=== PATIENT | female | born 1980 | race Caucasian/White ===

== ENCOUNTER 2023-02-03 02:41 | Outpatient (CLI) | payer OTHER, SELFPAY | END 2023-02-03 02:42 | disposition home or self-care (01) | LOC: AMB 02-06 05:41 | PROVIDERS: Visit Provider Family Medicine | DX: F29 Unspecified psychosis not due to a substance or known physiological condition (principal) | CPT/HCPCS: A0425; A0433 ==

== ENCOUNTER 2023-02-03 03:30 | Emergency (ER) | payer OTHER, SELFPAY ==
[2023-02-03] VITALS (44 sets, daily range): BP systolic 79–132; BP diastolic 35–101; PULSE 53–89; RESP 15–24; TEMP 36.2–36.3; O2SAT 97–100
--- NOTE | 2023-02-03 03:38 | ED_ITS ---
HPI - General Adult General Chief complaint: Nausea/Vomiting Stated complaint: panic attack Time Seen by Provider: 02/03/23 03:33 History of Present Illness HPI narrative: 42-year-old woman brought by EMS to the emergency department with concern of initially panic attack then noting low blood pressures. Information is obtained from EMS and arriving on little bit later. Had been evidently in the bathroom with a few of hours vomiting and having diarrhea. Vomiting is not atypical when she is really anxious. Has not had a fever. He had been attending to her and she said that she thought she was going to need some help now. EMS arrived to find her in a panic state. Given Ativan 2mg. Continued to demonstrate contractures of muscles. To calm further I believe was given 2.5 mg of droperidol. It also sounds as though has not been eating over the last 3 days or so. Talking further with , underlying depression is exacerbated over the last 6 months...probably much longer. Some of this coincided with prolonged hospitalization of a daughter who became toxic on lithium as described to me. Ms. Hi has been seeing a counselor. Medications have been adjusted. Reviewing medications, looks as though has been receiving some alprazolam. He says that she takes care to take medications as prescribed. She is also receiving guanfacine and I believe fluoxetine. As things have worsened with daily panic attacks and she is now on the wait list for a program at [facility]; I discussed later that this is focused on trauma. Related Data Home Medications Medication Instructions Recorded Confirmed alprazolam 0.25 mg tablet 0.25 mg PO PRN anxiety 02/03/23 alprazolam 1 mg tablet 1 mg PO DAILY PRN panic attack 02/03/23 02/03/23 fluvoxamine 100 mg tablet 150 mg PO BID 02/03/23 02/03/23 fluvoxamine 50 mg tablet mg PO 02/03/23 guanfacine 1 mg tablet,extended 1 mg PO DAILY 02/03/23 02/03/23 release 24 hr Previous Rx's Medication Instructions Recorded hydroxyzine HCl 25 mg tablet 25 - 50 mg (1 - 2 x 25 mg) PO QID 02/03/23 PRN anxiety #30 tabs ondansetron 4 mg disintegrating 4 mg PO Q4-6H PRN nausea/vomiting 02/03/23 tablet #15 tabs Allergies Allergy/AdvReac Type Severity Reaction Status Date / Time No Known Drug Allergies Allergy Verified 02/03/23 04:15 Review of Systems Status of ROS: Reports: unobtainable due to medical condition [facility] Medical History (Updated 02/03/23 @ 09:16 by Cornelio Pabon MD) Anxiety ?F41.9 - Anxiety disorder, unspecified (ICD-10) Depression ?F32.A - Depression, unspecified (ICD-10) Exam Narrative: Exam Narrative: Thin. Small stature. Curled up. At 1 point does say she is cold. Eyes are closed. Generally sedated not inconsistent with medications given. Symmetrical gaps in upper dentition coinciding I think with eyeteeth. Oropharynx is dry. Eyes are 2 mm and briskly reactive. She is breathing spontaneously not really responding to other interactions. Lungs appear to be clear. Heart is in a regular rhythm and rate. Abdomen is soft and apears to be nontender. Extre mities are without edema. Feet are cool. Do not see evidence of trauma to her head or person otherwise. There is some blood at the right forearm though due attempted IV start. Subtle smell of ketones I think. Const: Vital Signs, click to edit/add: Vital Signs - 24 hr 02/03/23 03:34 02/03/23 03:36 02/03/23 03:48 Temperature 97.1 F L 97.1 F L Pulse Rate Pulse Rate [Left P ulse Oximeter] 77 75 Respiratory Rate 18 18 Blood Pressure Blood Pressure [Ri ght Upper Arm] 132/101 H 82/35 L Pulse Oximetry 100 100 [facility] 02/03/23 03:49 02/03/23 03:50 02/03/23 03:52 Temperature Pulse Rate 79 75 74 Pulse Rate [Left P ulse Oximeter] Respiratory Rate 24 23 22 Blood Pressure 81/38 L 79/37 L Blood Pressure [Ri ght Upper Arm] Pulse Oximetry 100 100 100 [facility] 02/03/23 04:00 02/03/23 04:07 02/03/23 04:10 Temperature Pulse Rate Pulse Rate [Left P ulse Oximeter] Respiratory Rate 22 21 19 Blood Pressure 88/39 L Blood Pressure [Ri ght Upper Arm] Pulse Oximetry [facility] 02/03/23 04:12 02/03/23 04:22 02/03/23 04:42 Temperature Pulse Rate 89 85 Pulse Rate [Left P ulse Oximeter] Respiratory Rate 21 20 19 Blood Pressure 82/38 L 81/42 L 83/44 L Blood Pressure [Ri ght Upper Arm] Pulse Oximetry 100 99 [facility] 02/03/23 04:52 02/03/23 05:01 02/03/23 05:07 Temperature Pulse Rate 76 70 Pulse Rate [Left P ulse Oximeter] 64 Respiratory Rate 20 19 16 Blood Pressure 83/49 L 91/45 L Blood Pressure [Ri ght Upper Arm] 91/45 L Pulse Oximetry 98 99 98 Oxygen Delivery [facility] Room Air 02/03/23 05:11 02/03/23 05:22 02/03/23 05:33 Temperature Pulse Rate 68 67 64 Pulse Rate [Left P ulse Oximeter] Respiratory Rate 18 15 Blood Pressure 87/49 L 92/51 L 90/43 L Blood Pressure [Ri ght Upper Arm] Pulse Oximetry 99 99 100 Oxygen Delivery [facility] 02/03/23 05:47 02/03/23 06:02 02/03/23 06:10 Temperature Pulse Rate 56 L 58 L 59 L Pulse Rate [Left P ulse Oximeter] Respiratory Rate Blood Pressure 88/54 L 93/63 Blood Pressure [Ri ght Upper Arm] Pulse Oximetry 98 98 99 [facility] 02/03/23 06:17 02/03/23 06:20 02/03/23 06:30 Temperature Pulse Rate 53 L 53 L 56 L Pulse Rate [Left P ulse Oximeter] Respiratory Rate Blood Pressure 90/56 L Blood Pressure [Ri ght Upper Arm] Pulse Oximetry 98 98 98 Oxygen Delivery [facility] 02/03/23 06:32 02/03/23 06:40 02/03/23 06:45 Temperature Pulse Rate 60 61 55 L Pulse Rate [Left P ulse Oximeter] Respiratory Rate 16 Blood Pressure 92/53 L Blood Pressure [Ri ght Upper Arm] Pulse Oximetry 97 98 97 [facility] 02/03/23 06:50 02/03/23 07:00 02/03/23 07:05 Temperature Pulse Rate 54 L 61 57 L Pulse Rate [Left P ulse Oximeter] Respiratory Rate Blood Pressure Blood Pressure [Ri ght Upper Arm] Pulse Oximetry 98 97 99 Oxygen Delivery [facility] 02/03/23 07:10 02/03/23 07:20 02/03/23 07:25 Temperature Pulse Rate 59 L 63 61 Pulse Rate [Left P ulse Oximeter] Respiratory Rate Blood Pressure Blood Pressure [Ri ght Upper Arm] Pulse Oximetry 98 98 98 Oxygen Delivery [facility] 02/03/23 07:30 02/03/23 07:31 02/03/23 07:40 Temperature Pulse Rate 68 69 77 Pulse Rate [Left P ulse Oximeter] Respiratory Rate 16 Blood Pressure 88/47 L Blood Pressure [Ri ght Upper Arm] Pulse Oximetry 99 98 99 Oxygen Delivery [facility] 02/03/23 07:42 02/03/23 07:43 02/03/23 07:50 Temperature Pulse Rate 69 72 88 Pulse Rate [Left P ulse Oximeter] Respiratory Rate Blood Pressure 81/53 L Blood Pressure [Ri ght Upper Arm] Pulse Oximetry 98 98 99 Oxygen Delivery [facility] 02/03/23 08:00 02/03/23 08:01 02/03/23 08:10 Temperature 97.3 F L Pulse Rate 78 85 86 Pulse Rate [Left P ulse Oximeter] Respiratory Rate 16 Blood Pressure 84/47 L Blood Pressure [Ri ght Upper Arm] Pulse Oximetry 99 98 99 Oxygen Delivery [facility] 02/03/23 08:20 02/03/23 08:22 Temperature Pulse Rate 76 65 Pulse Rate [Left P ulse Oximeter] Respiratory Rate Blood Pressure 86/52 L Blood Pressure [Ri ght Upper Arm] Pulse Oximetry 100 99 Oxygen Delivery [facility] Documenting provider has reviewed patient's vital signs: yes Course Vital Signs Vital signs: Initial Vital Signs Temperature 97.1 F L 02/03/23 03:34 Temperature Source Temporal Artery Scan 02/03/23 03:34 Pulse Rate 77 02/03/23 03:34 Respiratory Rate 18 02/03/23 03:34 Blood Pressure 132/101 H 02/03/23 03:34 Blood Pressure Mean 111 H 02/03/23 03:34 Blood Pressure Position Supine 02/03/23 03:34 Pulse Oximetry 100 02/03/23 03:34 Oxygen Delivery Method Room Air 02/03/23 03:34 Vital Signs Temperature 97.1 F L 02/03/23 03:34 Pulse Rate 77 02/03/23 03:34 Respiratory Rate 18 02/03/23 03:34 Blood Pressure 132/101 H 02/03/23 03:34 Pulse Oximetry 100 02/03/23 03:34 Oxygen Delivery Method Room Air 02/03/23 03:34 Temperature 97.3 F L 02/03/23 08:01 Pulse Rate 65 02/03/23 08:22 Respiratory Rate 16 02/03/23 08:01 Blood Pressure 86/52 L 02/03/23 08:22 Pulse Oximetry 99 02/03/23 08:22 Oxygen Delivery Method Room Air 02/03/23 05:07 Medical Decision Making MDM Narrative Medical decision making narrative: Initial blood pressure is improved 132/101 though I believe she is lying on the cuff at this time. Recheck 82/35. She is receiving normal saline bolus. Certainly could be sepsis. Sedative medications could also be contributing to this lower blood pressure. Surely is malnourished. Collecting labs including blood cultures. Will be consulting for potential psychiatric placement as well. Over time increasingly responsive and cooperating with requests. 0447 -- White count returns as normal. Chemistries actually look remarkably good. Sustained renal function. Blood pressure still low but stable. Pulse remains at a normal rate. I think sepsis is less likely and blood pressure related to factors as above. Has been anticipating longer-term psychiatric placement. I am anticipating temporary admission to this facility for ?medical? reasons. However certainly possible that will show marked improvement. I would suspect given stature and apparent level of nourishment has generally low blood pressure. Furthermore then if not suicidal still potentially outpatient management appropriate for psychiatric concerns. I am concerned though that is rapidly decompensating. 8:15 a.m. I managed to speak with Ms. Hi and her family; mother also came to accompany. Due to daughter, family is very familiar with various residential facilities including those focusing on psychiatric and those also related to eating disorders. [facility] been determined [facility] most appropriate; at least the trauma program. Ms. Hi now more awake is able to discuss this more at length. She demonstrates significant insight into her declining health. Is looking for help. In further conversation appears that will have a couple days of eating better and then a few days of not. Persistent sense of nausea. Is also status post bariatric surgery. I am quite concerned about generally declining nutritional status. I wonder if perhaps would be a candidate for eating disorder program as often have concurrent focus of trauma and related anxiety/depression. To further conversation appears is quite committed to program with [facility] which is to be a day program. I wonder also due to what I am hearing today, if inpatient might be more appropriate/success and less ?triggering?. Did call to [facility] program and spoke to Nati to discuss my concerns. They are very understanding and I am anticipating follow-up by them with Ms. Abdalla with regard to the urgency of her situation. It is my understanding is she is that the top of their wait list with anticipated discharge is in a couple of weeks. Perhaps would be able to consult with manager talent or dietitian during that time and/or be admitted into an eating disorder program where there is current availability and transition over to the trauma program if necessary. Will temporize with Zofran for nausea and hydroxyzine for exacerbation of anxiety and nausea. She does have an appointment with her psychiatrist in a couple of hours and can further discuss these matters. I feel Ms. Abdalla is safe in the short term to discharge home. Further did not express any suicidal ideation See patient discharge plan. Lab Data Lab results reviewed: Yes I reviewed the patient's lab results Labs: Lab Results 02/03/23 02/03/23 02/03/23 Range/Units 03:41 05:20 06:37 WBC 10.52 (4.50-11.00) K/uL RBC 3.86 L (4.00-5.20) m/uL Hgb 12.3 (12.0-16.0) gm/dL Hct 36.8 (33.0-51.0) % MCV 95 (80-100) fL MCH 32 (26-34) pg MCHC 33 (32-36) gm/dL RDW Coeff of Cheryl 11.8 (11.5-15.5) % Plt Count 138 L (140-440) K/uL Neut % (Auto) 90.2 H (42.0-72.0) % Lymph % (Auto) 4.5 L (20-44) % [place] % (Auto) 4.6 (0.0-11.0) % Eos % (Auto) 0.1 (0.0-7.0) % Baso % (Auto) 0.2 (0.0-3.0) % Neut # (Auto) 9.50 H (1.7-7.0) K/uL Lymph # (Auto) 0.50 L (0.90-2.90) K/uL [place] # (Auto) 0.50 (0.00-0.90) K/UL Eos # (Auto) 0.01 (0.00-0.50) K/uL Baso # (Auto) 0.02 (0.00-0.30) K/uL Abs Immat Gran (auto) 0.04 (0.00-0.30) K/uL Imm/Tot Granulo (auto) 0.4 % VBG pH 7.185 L* (7.32-7.43) VBG pCO2 43 (40-50) mmHG VBG pO2 34.8 (25-47) mmHG VBG HCO3 16 L (21-28) mmol/L Sodium 139 (135-149) mmol/L Potassium 3.5 L (3.6-5.1) mmol/L Chloride 105 (96-114) mmol/L Carbon Dioxide 13 L (20-32) mmol/L BUN 10 (5-24) mg/dL Creatinine 0.7 (0.5-1.5) mg/dL Estimated GFR 111 ml/min Glucose 157 H (60-115) mg/dL Lactate 7.5 H* 0.8 (0.5-1.9) mmol/L Calcium 8.7 (8.4-10.6) mg/dL Phosphorus 2.5 (2.5-4.5) mg/dL Magnesium 1.6 (1.5-2.6) mg/dL Total Bilirubin 1.1 (0.1-1.5) mg/dL Direct Bilirubin 0.4 (0.0-0.5) mg/dL AST 95 H (12-35) U/L ALT 62 H (4-35) U/L Alkaline Phosphatase 75 (40-150) U/L Total Creatine Kinase 53 (41-117) U/L C-Reactive Protein < 0.5 L (0.5-1.0) mg/dL NT-Pro-B Natriuret Pep 164 pg/mL Total Protein 7.1 (6.0-8.3) g/dL Albumin 4.5 (3.3-5.0) g/dL TSH 2.970 (0.270-4.20) uIU/mL Urine Color Yellow (Yellow) Urine Appearance Clear (Clear) Urine pH 5.5 (5.0-8.5) Ur Specific [place] >= 1.030 (1.000-1.030) Urine Protein Trace A (Negative) Urine Glucose (UA) Negative (Negative) Urine Ketones 4+ A (Negative) Urine Blood Trace-intact A (Negative) Urine Nitrite Negative (Negative) Urine Bilirubin Negative (Negative) Urine Urobilinogen 0.2 (0.2-1.0) Ur Leukocyte Esterase Negative (Negative) Urine RBC 2-5 A (0-2) Urine WBC 0-2 (0-5) Ur Squamous Epith Cells Few (None-Few) Urine Bacteria None (None) Hyaline Casts Moderate A (None-Few) Urine Mucus Few A (None) Salicylates < 1.0 L (1.0-10) mg/dL Acetaminophen < 10.0 L (10.0-30.0) ug/mL Ethyl Alcohol < 0.01 L (0.01-0.03) % ECG Data Attestation: I personally reviewed and interpreted this ECG as follows: (Normal sinus rhythm. Prominent P-wave. Baseline irritability consistent with muscle tension/contraction. Rate of 77) Critical Care Time Critical Care Time Critical Care Time: Yes Attestation: The patient required my highest level preparedness to intervene emergently and I personally spent this critical care time directly and personally managing the patient. This critical care time included: Obtaining a history; Examining the patient; Pulse oximetry; Ordering and reviewing of studies; Arranging urgent treatment with development of a management plan; Evaluation of patients response to treatment; Frequent reassessment discussions with other providers. This critical care time was performed to assess and manage the high probability of imminent life-threatening deterioration that could result in multiorgan failure. It was exclusive of separate billable procedures and treating other patients and teaching time. Total Critical Care Time in Minutes: 50 Discharge Plan Discharge Clinical Impression: Chronic post-traumatic stress disorder, Dehydration, Anxiety, Malnutrition Patient Disposition: Home w/ Parent or Adult Condition: Improved Additional Instructions: As you know today I spoke with Nati at [facility]. Anticipate a phone call from them later today. I would encourage you to really consider a variety of options that might be available, if even temporary. I understand you will be discussing this with your psychiatrist yet this morning. I'm sorry you're going through all this. I hope this can soon calm for you. Take these copies of your labs today. Prescriptions: New hydroxyzine HCl 25 mg tablet 25 - 50 mg PO QID PRN (Reason: anxiety) Qty: 30 0RF ondansetron 4 mg tablet,disintegrating 4 mg PO Q4-6H PRN (Reason: nausea/vomiting) Qty: 15 1RF No Action alprazolam 1 mg tablet 1 mg PO DAILY PRN (Reason: panic attack) alprazolam 0.25 mg tablet 0.25 mg PO PRN (Reason: anxiety) fluvoxamine 100 mg tablet 150 mg PO BID fluvoxamine 50 mg tablet PO guanfacine 1 mg tablet extended release 24 hr 1 mg PO DAILY Follow Up/Referrals: Provider,Not a Local [Primary Care Provider] - Stand Alone Forms: [facility] Info Instructions
[2023-02-03 03:48] LABS: HCO3 VBG 16 mmol/L (21-28); PCO2 VBG 43 mmHG (40-50); PO2 VBG 34.8 mmHG (25-47)
--- NOTE | 2023-02-03 03:49 | ED.NURSE ---
warm blankets provided.
[2023-02-03 03:52] LABS: Lactate* 7.5 mmol/L (0.5-1.9); pH VBG 7.185 (7.32-7.43)
[2023-02-03 04:18] LABS: Basophils Absolute Auto 0.02 K/uL (0.00-0.30); Basophils Percent Auto 0.2 % (0.0-3.0); Eosinophils Absolute Auto 0.01 K/uL (0.00-0.50); Eosinophils Percent Auto 0.1 % (0.0-7.0); Hematocrit 36.8 % (33.0-51.0); Hemoglobin* 12.3 gm/dL (12.0-16.0); Immature Granulocytes Abs Auto 0.04 K/uL (0.00-0.30); Immature Granulocytes Pct Auto 0.4 %; Lymphocytes Percent Auto 4.5 % (20-44); Mean Corpuscular HGB Conc 33 gm/dL (32-36); Mean Corpuscular Hemoglobin 32 pg (26-34); Mean Corpuscular Volume 95 fL (80-100); Monocytes Percent Auto 4.6 % (0.0-11.0); Neutrophils Percent Auto 90.2 % (42.0-72.0); Platelet Count* 138 K/uL (140-440); RDW Coefficient of Variation % 11.8 % (11.5-15.5); Red Blood Count 3.86 m/uL (4.00-5.20); White Blood Count* 10.52 K/uL (4.50-11.00)
[2023-02-03 04:21] LABS: Slide Review Reflex No
--- NOTE | 2023-02-03 04:21 | PC.NURSE ---
Pt arrived about 50 min ago with low b/Ps. Noted to have 18G left ac with 500NS from EMS almost complete. This completed and another 1L NS up. Multiple attempts to place second IV/failed. Lab able to get rest of labs with a couple attemts. B/Ps remain marginal. Sats greater than 95% on room air. Pt somulant but arrouse to requests. SO at BS and supportive.
[2023-02-03 04:24] LABS: Chloride* 105 mmol/L (96-114); Sodium* 139 mmol/L (135-149)
[2023-02-03 04:25] LABS: Potassium* 3.5 mmol/L (3.6-5.1)
[2023-02-03 04:26] LABS: Albumin* 4.5 g/dL (3.3-5.0)
[2023-02-03 04:27] LABS: Carbon Dioxide* 13 mmol/L (20-32); Creatinine* 0.7 mg/dL (0.5-1.5); Estimated Glomerular Filt Rate 111 ml/min
[2023-02-03 04:28] LABS: Blood Urea Nitrogen* 10 mg/dL (5-24); Calcium* 8.7 mg/dL (8.4-10.6); Glucose* 157 mg/dL (60-115)
[2023-02-03 04:29] LABS: Alkaline Phosphatase* 75 U/L (40-150); Aspartate Amino Transferase* 95 U/L (12-35); Bilirubin Direct* 0.4 mg/dL (0.0-0.5); Bilirubin Total* 1.1 mg/dL (0.1-1.5); Creatine Kinase* 53 U/L (41-117); Magnesium* 1.6 mg/dL (1.5-2.6); Phosphorus* 2.5 mg/dL (2.5-4.5); Total Protein* 7.1 g/dL (6.0-8.3)
[2023-02-03 04:30] LABS: Acetaminophen* < 10.0 ug/mL (10.0-30.0); Ethanol* < 0.01 % (0.01-0.03)
[2023-02-03 04:31] LABS: Salicylate* < 1.0 mg/dL (1.0-10)
[2023-02-03 04:32] LABS: C Reactive Protein* < 0.5 mg/dL (0.5-1.0)
[2023-02-03] MEDS: 0.9 % SODIUM CHLORIDE 1000 ml 1,000 ML 6000 ML IV (04:34)
[2023-02-03 04:37] LABS: NT Pro B Type NatriureticPept* 164 pg/mL
[2023-02-03 04:42] LABS: Alanine Aminotransferase* 62 U/L (4-35)
[2023-02-03] MEDS: 0.9 % SODIUM CHLORIDE 1000 ml 1,000 ML IV ×2 (04:53→05:00)
--- NOTE | 2023-02-03 05:32 | PC.NURSE ---
Pt up to BR with 1 assist. Gait slow and steady. Urine sect as ordered. /43. Family at BS and supportive. IVF infusing slowly.
[2023-02-03 05:34] LABS: Appearance Urine Clear (Clear); Bilirubin Urine Negative (Negative); Blood Urine Trace-intact (Negative); Color Urine Yellow (Yellow); Glucose Urine Negative (Negative); Ketones Urine 4+ (Negative); Leukocyte Esterase Urine Negative (Negative); Nitrite Urine Negative (Negative); Protein Urine Trace (Negative); Specific Gravity Urine >= 1.030 (1.000-1.030); Urobilinogen Urine 0.2 (0.2-1.0); pH Urine 5.5 (5.0-8.5)
[2023-02-03 05:48] LABS: Mucus Urine Few; Squamous Epithelial Cell Urine Few (None-Few); WBC Urine 0-2 (0-5)
[2023-02-03 05:49] LABS: Hyaline Casts Urine Moderate (None-Few)
[2023-02-03 06:42] LABS: Lactate* 0.8 mmol/L (0.5-1.9)
--- NOTE | 2023-02-03 08:00 | ED.NURSE ---
Updated Dr. Pabon that patient has an appointment with her psychiatrist at 11am today with [facility] in [place]. Patient stated she has an outpatient day treatment planned in a couple weeks in [place], [place]. Patient stated she is feeling a lot better than when she first came in. Refused to eat food at this time but did agree to drinking some apple juice. This was provided to patient. BP remains low and MD aware and stated This is her baseline.
== END 2023-02-03 09:26 | disposition home or self-care (01) ==
PROVIDERS: Emergency Provider Family Medicine
DX: F43.12 Post-traumatic stress disorder, chronic (principal); E86.0 Dehydration; E46 Unspecified protein-calorie malnutrition; F41.9 Anxiety disorder, unspecified
CPT/HCPCS: 36415; 80048; 80076; 80143; 80179; 81001; 82077; 82550; 82803; 83605; 83735; 83880; 84100; 84443; 85025; 86140; 87040; 93005; 94761; 96360; 96361; 99284; 99291; J7030

== ENCOUNTER 2024-06-16 14:25 | Outpatient (CLI) | payer OTHER, SELFPAY ==
--- OUTSIDE RECORDS SUMMARY | 2024-06-17 03:58 | XMS_ITS | Clinical Summary ---
Author Organization [facility] Address [address] [place] [address] Care Team Providers Care Director [employer] Name Role Phone Morena Paredes MD Primary Care Provider [phone] Morena Paredes MD Unavailable [phone] Allergies No known active allergies Medications Cholecalciferol (VITAMIN D-3) 125 MCG (7360 UT) TABS Take 1 capsule by mouth [...] Administration Dates Next Due Flu, Unspecified 03/27/2015 [id number] Novel Flu 06/10/2009 Influenza (IIV3) PF 03/18/2016, [...] on file Legal Sex Female 3:31 PM [employer] Gender Identity Not on file Sexual Orientation Not on file Last Filed Vital Signs Vital Sign Reading Time Taken Comments Blood Pressure 90/60 08/02/2023 9:54 AM [employer] Pulse 88 08/02/2023 9:54 AM [employer] Temperature 36.6 C (97.9 F) 08/02/2023 9:54 AM [employer] Respiratory Rate 18 08/02/2023 9:54 AM [employer] Oxygen Saturation 99% 08/02/2023 9:54 AM M[employer]ED [employer] Inhaled Oxygen Concentration - - Weight 54.4 kg (119 lb 14.4 oz) 08/02/2023 9:54 AM M[employer] Height 156.8 cm (5' 1.75) 08/02/2023 9:54 AM CS T Body Mass Index 22.11 08/02/2023 9:54 AM M[employer]ED [employer] Plan of Treatment Health Maintenance Due Date [...] Routine 10/17/2020 8:44 AM CDT ABSTRACT HPV ([facility] EXTERNAL RESULT) Routine 12/13/2018 9:15 AM CDT from Last 3 Months or Most Recently Relevant to Health Maintenance Results * Lipid Panel (External Result) (10/17/2020 8:44 AM CDT) Cholesterol (External) 181 100 - 199 mg/dL [facility] Triglycerides (External) 58 <150 mg/dL [facility] HDL Cholesterol (External) 56 >40 mg/dL [facility] LDL Cholesterol Calculated (External) 113 <=130 mg/dL [facility] Non HDL Cholesterol (External) 125 <145 mg/dL [facility] Blood 10/17/2020 8:44 AM CDT Narrative [facility] - 10/17/2020 8:44 AM CDT See Care Everywhere-[facility] Affiliates us Provider Outside LAB - HIM [place] [address], [facility] [phone] * Abstract HPV ([facility] External Result) (12/13/2018 9:15 AM CDT) HPV Abstract See Scanned Document [facility] 12/13/2018 9:15 AM CDT Narrative [facility] - 12/13/2018 9:15 AM CDT See Care Everywhere-[employer] [facility] & [facility] Affiliates us Provider Outside LAB - HIM EXTERNAL RESULT Final Result [facility] [address] [place] [address], [facility] from Last 3 Months or Most Recently Relevant to Health Maintenance Insurance [employer] Care Teams Director [employer] Relationship Specialty Start Date End Date Morena Paredes MD [address] [place] [address] PCP - General Internal Medicine - Pediatrics 12/14/22 Morena Paredes MD [address] [place] [address] Assigned PCP 08/11/23
--- OUTSIDE RECORDS SUMMARY | 2024-06-17 03:58 | XMS_ITS | Referral Summary ---
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 Gender Identity Not on file Sexual Orientation Not on file Last Filed Vital Signs Vital Sign Reading Time Taken Comments Blood Pressure 90/60 08/02/2023 9:54 AM REFUSE COLLECTOR SUPERVISOR Pulse 88 08/02/2023 9:54 AM REFUSE COLLECTOR SUPERVISOR Temperature 36.6 C (97.9 F) 08/02/2023 9:54 AM REFUSE COLLECTOR SUPERVISOR Respiratory Rate 18 08/02/2023 9:54 AM REFUSE COLLECTOR SUPERVISOR Oxygen Saturation 99% 08/02/2023 9:54 AM REFUSE COLLECTOR SUPERVISOR Inhaled Oxygen Concentration - - Weight 54.4 kg (119 lb 14.4 oz) 08/02/2023 9:54 AM REFUSE COLLECTOR SUPERVISOR Height 156.8 cm (5' 1.75) 08/02/2023 9:54 AM CS T Body Mass Index 22.11 08/02/2023 9:54 AM REFUSE COLLECTOR SUPERVISOR Plan of Treatment Not on file Procedures Procedure Name Priority Date/Time Associated Diagnosis Comments LIPID PANEL (EXTERNAL RESULT) Routine 10/17/2020 8:44 AM CDT ABSTRACT HPV (HIM EXTERNAL RESULT) Routine 12/13/2018 9:15 AM CDT from Last 3 Months or Most Recently Relevant to Health Maintenance Results * Lipid Panel (External Result) (10/17/2020 8:44 AM CDT) Cholesterol (External) 181 100 - 199 mg/dL [facility] Triglycerides (External) 58 <150 mg/dL [facility] HDL Cholesterol (External) 56 >40 mg/dL [facility] LDL Cholesterol Calculated (External) 113 <=130 mg/dL [facility] Non HDL Cholesterol (External) 125 <145 mg/dL [facility] Blood 10/17/2020 8:44 AM CDT Narrative [facility] - 10/17/2020 8:44 AM CDT See Care Everywhere-[facility] [employer] [facility] us Provider Outside LAB - HIM EXTERNAL RESULT Final Result [facility] [address] [phone] * Abstract HPV (HIM External Result) (12/13/2018 9:15 AM CDT) HPV Abstract See Scanned Document [facility] 12/13/2018 9:15 AM CDT Narrative [facility] - 12/13/2018 9:15 AM CDT See Care Everywhere-[facility] Provider Outside LAB - HIM EXTERNAL RESULT Final Result [facility] [address] [place] [address], [facility] from Last 3 Months or Most Recently Relevant to Health Maintenance Insurance [employer] Care Teams Accountant Assistant Relationship Specialty Start Date End Date Morena Paredes MD [address] [place] [address] PCP - General Internal Medicine - Pediatrics 12/14/22 Morena Paredes MD [address] [place] [address] Assigned PCP 08/11/23
== END 2024-06-16 14:26 | disposition home or self-care (01) ==
LOC: AMB 06-17 03:56
PROVIDERS: Visit Provider Family Medicine
DX: R41.82 Altered mental status, unspecified (principal); F41.9 Anxiety disorder, unspecified
CPT/HCPCS: A0425; A0427

== ENCOUNTER 2024-06-16 15:02 | Inpatient (IN) | payer OTHER, SELFPAY ==
[2024-06-16] VITALS (31 sets, daily range): BP systolic 92–118; BP diastolic 52–98; PULSE 62–142; RESP 14–40; TEMP 36.5; O2SAT 91–100; BMI 17.5
[2024-06-16 15:30] LABS: HCO3 VBG 26 mmol/L (21-28); Lactate* 2.9 mmol/L (0.5-1.9); PCO2 VBG 49 mmHG (40-50); pH VBG 7.329 (7.32-7.43)
--- OUTSIDE RECORDS SUMMARY | 2024-06-16 15:30 | XMS_ITS | Referral Summary ---
Author Organization [facility] Address [address] [place] [address] Care Team Providers Care Freelance Interpreter/Translator Name Role Phone Morena Paredes MD Primary Care Provider [phone] Morena Paredes MD Unavailable [phone] Allergies No known active allergies Medications Cholecalciferol (VITAMIN D-3) 125 MCG (9935 UT) TABS Take 1 capsule by mouth daily 07/26/2023 Active ALPRAZolam (XANAX) 0.5 MG tablet Take 0.5 mg by mouth 2 times daily as needed for anxiety 07/26/2023 Active doxepin (SINEQUAN) 10 MG capsule Take 10 mg by mouth at bedtime 07/29/2023 Active FLUoxetine (PROZAC) 10 MG capsule Take 10 mg by mouth daily 07/12/2023 Active FLUoxetine (PROZAC) 20 MG capsule Take 20 mg by mouth daily 07/12/2023 Active fluvoxaMINE (LUVOX) 100 MG tablet Take 100 mg by mouth daily Total 150mg daily 02/10/2023 Active fluvoxaMINE (LUVOX) 50 MG tablet Take 50 mg by mouth daily Total 150mg daily 07/12/2023 Active guanFACINE (INTUNIV) 2 MG TB24 24 hr tablet Take 2 mg by mouth at bedtime 04/15/2023 Active omeprazole (PRILOSEC) [address] capsule Take 20 mg by mouth daily 07/07/2023 Active prazosin (MINIPRESS) 2 MG capsule Take 2 mg by mouth at bedtime Total 3mg 07/29/2023 Active prazosin (MINIPRESS) 1 MG capsule Take 1 mg by mouth at bedtime Total 3mg 07/12/2023 Active Active Problems Problem Noted Date Diagnosed Date PTSD (post-traumatic stress disorder) 08/02/2023 History of bariatric surgery 09/14/2012 Vitamin D deficiency 06/25/2010 Immunizations Name Administration Dates Next Due Flu, Unspecified 03/27/2015 [id number] Novel Flu 06/10/2009 Influenza (IIV3) PF 03/18/2016, 3,05/09/2012,2009,03/27/2009 Influenza Vaccine >6 months,quad, PF ,04/13/2019,04/21/2018,2016,03/24/2016,03/18/2015,06/04/2014 Influenza Vaccine, 6+MO IM (QUADRIVALENT W/PRESERVATIVES) 05/08/2021 TDAP (Adacel,Boostrix) 07/26/2018,12/29/2007 Social History Tobacco Use Types Packs/Day Years Used Date Smoking Tobacco: Never Smokeless Tobacco: Never Tobacco Cessation:Counseling Given: Not Answered PHQ-2 Answer Date Recorded PHQ-2 Score 3 08/02/2023 Adolescent Education Answer Date Record ed Getting School Help Needed Not on file 04/09 Food Insecurity Answer Date Recorded Within the past 12 months, d id you worry that your food would run out before you got money to buy more? No 08/02/2023 Within the past 12 months, d id the food you bought just not last and you didn t have money to get more? No 08/02/2023 Housing Stability Answer Date Recorded Do you have housing? (Housin g is defined as stable permanent housing and does not include staying ouside in a car, in a tent, in an abandoned building, in an overnight halfway, or couch-surfing.) Yes 08/02/2023 Are you worried about losing your housing? No 08/02/2023 Financial Resource Strain Answer Date R ecorded Within the past 12 months, h ave you or your family members you live with been unable to get utilities (heat, electricity) when it was really needed? No 08/02/2023 Transportation Needs Answer Date Record ed Within the past 12 months, h as lack of transportation kept you from medical appointments, getting your medicines, non-medical meetings or appointments, work, or from getting things that you need? No 08/02/2023 Interpersonal Safety Answer Date Record ed Do you feel physically and e motionally safe where you currently live? Yes 08/02/2023 Within the past 12 months, h ave you been hit, slapped, kicked or otherwise physically hurt by someone? No 08/02/2023 Within the past 12 months, h ave you been humiliated or emotionally abused in other ways by your partner or ex-partner? 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 Gender Identity Not on file Sexual Orientation Not on file Last Filed Vital Signs Vital Sign Reading Time Taken Comments Blood Pressure 90/60 08/02/2023 9:54 AM TELECASTING ENGINEER Pulse 88 08/02/2023 9:54 AM TELECASTING ENGINEER Temperature 36.6 C (97.9 F) 08/02/2023 9:54 AM TELECASTING ENGINEER Respiratory Rate 18 08/02/2023 9:54 AM TELECASTING ENGINEER Oxygen Saturation 99% 08/02/2023 9:54 AM TELECASTING ENGINEER Inhaled Oxygen Concentration - - Weight 54.4 kg (119 lb 14.4 oz) 08/02/2023 9:54 AM TELECASTING ENGINEER Height 156.8 cm (5' 1.75) 08/02/2023 9:54 AM CS T Body Mass Index 22.11 08/02/2023 9:54 AM TELECASTING ENGINEER Plan of Treatment Not on file Procedures Procedure Name Priority Date/Time Associated Diagnosis Comments LIPID PANEL (EXTERNAL RESULT) Routine 10/17/2020 8:44 AM CDT ABSTRACT HPV (HIM EXTERNAL RESULT) Routine 12/13/2018 9:15 AM CDT from Last 3 Months or Most Recently Relevant to Health Maintenance Results * Lipid Panel (External Result) (10/17/2020 8:44 AM CDT) Cholesterol (External) 181 100 - 199 mg/dL [facility] Triglycerides (External) 58 <150 mg/dL [facility] HDL Cholesterol (External) 56 >40 mg/dL [facility] LDL Cholesterol Calculated (External) 113 <=130 mg/dL [facility] Non HDL Cholesterol (External) 125 <145 mg/dL [facility] Blood 10/17/2020 8:44 AM CDT Narrative [facility] - 10/17/2020 8:44 AM CDT See Care Everywhere-[facility] us Provider Outside LAB - HIM EXTERNAL RESULT Final Result [facility] [address] [phone] * Abstract HPV (HIM External Result) (12/13/2018 9:15 AM CDT) HPV Abstract See Scanned Document [facility] 12/13/2018 9:15 AM CDT Narrative [facility] - 12/13/2018 9:15 AM CDT See Care Everywhere-[facility] [employer] [facility] Provider Outside LAB - HIM EXTERNAL RESULT Final Result [facility] [address] [place] [address], [facility] from Last 3 Months or Most Recently Relevant to Health Maintenance Insurance [employer] Care Teams Freelance Interpreter/Translator Relationship Specialty Start Date End Date Morena Paredes MD [address] [place] [address] PCP - General Internal Medicine - Pediatrics 12/14/22 Morena Paredes MD [address] [place] [address] Assigned PCP 08/11/23
--- OUTSIDE RECORDS SUMMARY | 2024-06-16 15:30 | XMS_ITS | Clinical Summary ---
Author Organization [facility] Address [address] [place] [address] Care Team Providers Care Business Consult Name Role Phone Morena Paredes MD Primary Care Provider [phone] Morena Paredes MD Unavailable [phone] Allergies No known active allergies Medications Cholecalciferol (VITAMIN D-3) 125 MCG (4730 UT) TABS Take 1 capsule by mouth [...] Administration Dates Next Due Flu, Unspecified 03/27/2015 [id number] Novel Flu 06/10/2009 Influenza (IIV3) PF 03/18/2016, [...] in an abandoned building, in an overnight longterm, or couch-surfing.) Yes 08/02/2023 Are you worried [...] on file Legal Sex Female 3:31 PM [employer] Gender Identity Not on file Sexual Orientation Not on file Last Filed Vital Signs Vital Sign Reading Time Taken Comments Blood Pressure 90/60 08/02/2023 9:54 AM UNDERGROUND FOREM[employer] Pulse 88 08/02/2023 9:54 AM UNDERGROUND FOREM[employer] Temperature 36.6 C (97.9 F) 08/02/2023 9:54 AM UNDERGROUND FOREM[employer] Respiratory Rate 18 08/02/2023 9:54 AM UNDERGROUND FOREMAN Oxygen Saturation 99% 08/02/2023 9:54 AM UNDERGROUND FOREMAN Inhaled Oxygen Concentration - - Weight 54.4 kg (119 lb 14.4 oz) 08/02/2023 9:54 AM UNDERGROUND FOREMAN Height 156.8 cm (5' 1.75) 08/02/2023 9:54 AM CS T Body Mass Index 22.11 08/02/2023 9:54 AM UNDERGROUND FOREMAN Plan of Treatment Health Maintenance Due Date Last Done Comments ADVANCE CARE PLANNING 1980 ANNUAL REVIEW OF HM ORDERS 1980 GLUCOSE 1980 MAMMO SCREENING 1980 YEARLY PREVENTIVE VISIT 1980 HPV TEST 12/14/2023 12/13/2018, 12/13/2018 PAP 12/14/2023 12/13/2018, 11/16, 12/13/2018 COVID-19 Vaccine ( season) 2024 05/08/2021, 08/19/2020, 07/29/2020 INFLUENZA VACCINE (#1) 2024 , 04/02/2020, 04/13/2019, Additional history exists LIPID 10/17/2025 10/17/2020 DTAP/TDAP/TD IMMUNIZATION (3 - Td or Tdap) 07/26/2028 07/26/2018, 12/29/2007 RSV VACCINE (1 - 1-dose 75+ series) 2055 PHQ-2 (once per calendar year) Completed 08/02/2023, 08/02/2023 HEPATITIS B IMMUNIZATION Discontinued HEPATITIS C SCREENING Discontinued HIV SCREENING Discontinued HPV IMMUNIZATION Aged Out No longer e ligible based on patient's age to complete this topic MENINGITIS IMMUNIZATION Aged Out No l onger eligible based on patient's age to complete this topic Pneumococcal Vaccine: Pediatrics (0 to 5 Years) and At-Risk Patients (6 to 64 Years) Aged Out No longer eligible based on patient's age to complete this topic RSV MONOCLONAL ANTIBODY Aged Out No l onger eligible based on patient's age to complete this topic Procedures Procedure Name Priority Date/Time Associated Diagnosis Comments LIPID PANEL (EXTERNAL RESULT) Routine 10/17/2020 8:44 AM CDT ABSTRACT HPV ([facility] EXTERNAL RESULT) Routine 12/13/2018 9:15 AM CDT from Last 3 Months or Most Recently Relevant to Health Maintenance Results * Lipid Panel (External Result) (10/17/2020 8:44 AM CDT) Cholesterol (External) 181 100 - 199 mg/dL [facility] Triglycerides (External) 58 <150 mg/dL [facility] HDL Cholesterol (External) 56 >40 mg/dL [facility] LDL Cholesterol Calculated (External) 113 <=130 mg/dL [facility] Non HDL Cholesterol (External) 125 <145 mg/dL [facility] Blood 10/17/2020 8:44 AM CDT Narrative [facility] - 10/17/2020 8:44 AM CDT See Care Everywhere-[facility] Affiliates us Provider Outside LAB - HIM [place] [address], [facility] [phone] * Abstract HPV ([facility] External Result) (12/13/2018 9:15 AM CDT) HPV Abstract See Scanned Document [email or web address] 12/13/2018 9:15 AM CDT Narrative [facility] - 12/13/2018 9:15 AM CDT See Care Everywhere-[facility] Affiliates us Provider Outside LAB - HIM EXTERNAL RESULT Final Result [email or web address] [address] [place] [address], [facility] from Last 3 Months or Most Recently Relevant to Health Maintenance Insurance [employer] Care Teams Business Consult Relationship Specialty Start Date End Date Morena Paredes MD [address] [place] [address] PCP - General Internal Medicine - Pediatrics 12/14/22 Morena Paredes MD [address] [place] [address] Assigned PCP 08/11/23
[2024-06-16 15:33] LABS: Basophils Absolute Auto 0.02 K/uL (0.00-0.30); Basophils Percent Auto 0.3 % (0.0-3.0); Eosinophils Absolute Auto 0.01 K/uL (0.00-0.50); Eosinophils Percent Auto 0.1 % (0.0-7.0); Hematocrit 41.4 % (33.0-51.0); Hemoglobin* 13.8 gm/dL (12.0-16.0); Immature Granulocytes Abs Auto 0.02 K/uL (0.00-0.30); Immature Granulocytes Pct Auto 0.3 %; Lymphocytes Percent Auto 12.7 % (20-44); Mean Corpuscular HGB Conc 33 gm/dL (32-36); Mean Corpuscular Hemoglobin 31 pg (26-34); Mean Corpuscular Volume 94 fL (80-100); Monocytes Percent Auto 6.1 % (0.0-11.0); Neutrophils Percent Auto 80.5 % (42.0-72.0); Platelet Count* 202 K/uL (140-440); RDW Coefficient of Variation % 11.9 % (11.5-15.5); Red Blood Count 4.41 m/uL (4.00-5.20); White Blood Count* 7.35 K/uL (4.50-11.00)
[2024-06-16 15:37] LABS: Anion Gap 15 mEq/L (7-15); Carbon Dioxide* 24 mmol/L (20-32); Chloride* 106 mmol/L (96-114); Glucose* 88 mg/dL (60-115); Potassium* 3.3 mmol/L (3.6-5.1); Sodium* 145 mmol/L (135-149)
[2024-06-16 15:38] LABS: Slide Review Reflex No
[2024-06-16] MEDS: 0.9 % SODIUM CHLORIDE 500 ML 500 ML 1000 ML IV ×2 (15:43→22:10)
--- NOTE | 2024-06-16 15:44 | ED.GENADULT ---
HPI - General Adult General Chief complaint: Altered Mental Status Stated complaint: ketamine overuse Time Seen by Provider: 06/16/24 15:10 History of Present Illness HPI narrative: History is provided by mother. She reports patient has long standing issue with severe depression and anxiety. She was last hospitalized last summer for several months . At that time she was undergoing ketamine infusions. Her insurance then reportedly changed, and she changed to ODT Ketamine for symptomatic anxiety and depression. Mom reports low mood, however, has been working and that has been going well. Mom does not believe this was suicide attempt but rather her just trying to feel better. 44-year-old woman brought in [facility] by EMS following apparent ingestion/overdose, suspected with ketamine. Does have history of anxiety depression. Increased stressors lately. Does have ODT ketamine to take at home. Was responding briefly to EMS upon arrival. Noted to have some powder under her tongue. Has become less responsive during transport. Pupils were not noted to be pinpoint and no Narcan was given. Discussion with family has not been thought to be suicidal just stressed. Shiela is not offering much in way of information at this point. In conversation with mother and , she has been more depressed over the last 2- 3 months. Has been taking ODT ketamine which was apparently prescribed from a provider online, weekly. Family is aware of her medications but do not actually hand them out. She also also been using weekly benzodiazepine, Xanax. Possibly more frequently. Was noted to be a little unsteady yesterday. I understand that she did have another tablet of ketamine in her hand while under the covers that was removed. Last year was hospitalized for couple of months for what sounds like marked depression and failure to thrive; significant weight loss. Stressors include autistic daughter. Shiela did regain weight during this hospitalization. Ketamine infusions at that time. With change of insurance then went online to find provider for oral ketamine. 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 Reportedly really enjoys her job. Mom notes how on evening she comes home and crawls into bed for 3 days. Related Data Home Medications ?Medication ?Instructions ?Recorded ?Confirmed alprazolam 0.25 mg tablet 0.25 mg PO PRN anxiety 02/03/23 alprazolam 1 mg tablet 1 mg PO DAILY PRN panic attack 02/03/23 02/03/23 fluvoxamine 100 mg tablet 150 mg PO BID 02/03/23 02/03/23 fluvoxamine 50 mg tablet mg PO 02/03/23 guanfacine 1 mg tablet,extended 1 mg PO DAILY 02/03/23 02/03/23 release 24 hr Previous Rx's ?Medication ?Instructions ?Recorded hydroxyzine HCl 25 mg tablet 25 - 50 mg (1 - 2 x 25 mg) PO QID 02/03/23 PRN anxiety #30 tabs ondansetron 4 mg disintegrating 4 mg PO Q4-6H PRN nausea/vomiting 02/03/23 tablet #15 tabs Allergies Allergy/AdvReac Type Severity Reaction Status Date / Time No Known Drug Allergies Allergy Verified 02/03/23 04:15 Review of Systems Status of ROS: Reports: 6 or more systems reviewed and unremarkable except as noted in History and below [facility] Medical History Anxiety ?F41.9 - Anxiety disorder, unspecified (ICD-10) Depression ?F32.A - Depression, unspecified (ICD-10) Social History Smoking Status: Unknown if ever smoked Non-prescribed substance use details: Ketamine Exam Narrative: Exam Narrative: Appears quite thin. Eyes are closed head is rotated to the right. Transfer to the cot is not really responding. Ago to examine further she does resist throws her left arm up and then rolled over to her left side. Pupils look to be 5 mm and equal. Appropriately reactive, accommodating. Extraocular movements look to be intact. Head is atraumatic. No indication of recent trauma on her person. No track morgan. Heart is in mildly elevated rate in a regular rhythm but rather distant. Abdomen is flat soft appears to be nontender. Oropharynx is disheveled. Possibly smell of ketones here. Const: Vital Signs, click to edit/add: Vital Signs - 24 hr 06/16/24 15:16 06/16/24 15:16 06/16/24 15:30 Temperature 97.7 F Pulse Rate 72 Pulse Rate [Pulse Oximeter] 92 Respiratory Rate 20 Blood Pressure 118/76 Blood Pressure [Le ft Upper Arm] 108/52 L Pulse Oximetry 100 94 94 Oxygen Delivery Me thod Room Air 06/16/24 15:32 06/16/24 15:47 06/16/24 16:02 Temperature Pulse Rate 71 75 82 Pulse Rate [Pulse Oximeter] Respiratory Rate 16 Blood Pressure 115/76 111/63 112/72 Blood Pressure [Le ft Upper Arm] Pulse Oximetry 94 96 100 Oxygen Delivery Me thod 06/16/24 16:15 06/16/24 16:20 06/16/24 16:20 Temperature Pulse Rate 142 H Pulse Rate [Pulse Oximeter] Respiratory Rate 36 H 28 H Blood Pressure Blood Pressure [Le ft Upper Arm] Pulse Oximetry 100 100 Oxygen Delivery Me thod 06/16/24 16:25 06/16/24 16:27 06/16/24 16:30 Temperature Pulse Rate 125 H 136 H Pulse Rate [Pulse Oximeter] 114 H Respiratory Rate 28 H 20 40 H Blood Pressure 106/54 L Blood Pressure [Le ft Upper Arm] 106/54 L Pulse Oximetry 100 100 100 Oxygen Delivery Me thod Room Air 06/16/24 16:38 06/16/24 16:39 06/16/24 16:45 Temperature Pulse Rate 105 H 95 111 H Pulse Rate [Pulse Oximeter] Respiratory Rate 38 H 18 18 Blood Pressure 115/98 H Blood Pressure [Le ft Upper Arm] Pulse Oximetry 100 100 96 Oxygen Delivery Me thod 06/16/24 16:52 06/16/24 16:57 06/16/24 17:00 Temperature Pulse Rate 117 H 117 H 111 H Pulse Rate [Pulse Oximeter] Respiratory Rate 16 15 14 Blood Pressure 100/52 L 98/60 Blood Pressure [Le ft Upper Arm] Pulse Oximetry 96 96 95 Oxygen Delivery Me thod 06/16/24 17:09 06/16/24 17:18 06/16/24 17:20 Temperature Pulse Rate 112 H 104 H Pulse Rate [Pulse Oximeter] Respiratory Rate 17 20 22 Blood Pressure 94/55 L 96/53 L Blood Pressure [Le ft Upper Arm] Pulse Oximetry 96 92 Oxygen Delivery Me thod 06/16/24 17:21 06/16/24 17:30 06/16/24 18:06 Temperature Pulse Rate 100 94 78 Pulse Rate [Pulse Oximeter] Respiratory Rate 19 22 22 Blood Pressure 92/60 115/74 Blood Pressure [Le ft Upper Arm] Pulse Oximetry 91 91 94 Oxygen Delivery Me thod 06/16/24 18:52 06/16/24 19:02 06/16/24 19:30 Temperature Pulse Rate 69 71 68 Pulse Rate [Pulse Oximeter] Respiratory Rate Blood Pressure 111/70 111/75 Blood Pressure [Le ft Upper Arm] Pulse Oximetry 94 94 94 Oxygen Delivery Me thod 06/16/24 19:32 Temperature Pulse Rate 70 Pulse Rate [Pulse Oximeter] Respiratory Rate 16 Blood Pressure 113/70 Blood Pressure [Le ft Upper Arm] Pulse Oximetry 95 Oxygen Delivery Me thod Documenting provider has reviewed patient's vital signs: yes Course Vital Signs Vital signs: Initial Vital Signs Temperature 97.7 F 06/16/24 15:16 Temperature Source Temporal Artery Scan 06/16/24 15:16 Pulse Rate 92 06/16/24 15:16 Respiratory Rate 20 06/16/24 15:16 Blood Pressure 108/52 L 06/16/24 15:16 Blood Pressure Mean 70 06/16/24 15:16 Pulse Oximetry 100 06/16/24 15:16 Oxygen Delivery Method Room Air 06/16/24 15:16 Vital Signs Temperature 97.7 F 06/16/24 15:16 Pulse Rate 92 06/16/24 15:16 Respiratory Rate 20 06/16/24 15:16 Blood Pressure 108/52 L 06/16/24 15:16 Pulse Oximetry 100 06/16/24 15:16 Oxygen Delivery Method Room Air 06/16/24 15:16 Temperature 97.7 F 06/16/24 15:16 Pulse Rate 70 06/16/24 19:32 Respiratory Rate 16 06/16/24 19:32 Blood Pressure 113/70 06/16/24 19:32 Pulse Oximetry 95 06/16/24 19:32 Oxygen Delivery Method Room Air 06/16/24 16:25 Medications Administered Medications: Generic Name Dose Route Start Last Admin Trade Name Freq PRN Reason Stop Dose Admin Folic Acid 1 mg/ Multivitamins 1,011.2 mls @ 100 mls/hr 06/16/24 22:34 06/16/24 22:47 10 ml/ Thiamine HCl 100 mg/ IV 06/17/24 08:40 100 mls/hr Sodium Chloride .Q10H7M PACO Administration Discontinued Medications Generic Name Dose Route Start Last Admin Trade Name Freq PRN Reason Stop Dose Admin Sodium Chloride 500 mls @ 1,000 mls/hr 06/16/24 15:10 06/16/24 16:10 0.9 % Sodium Chloride 500 Ml IV 06/16/24 15:39 0 mls/hr .Q30M ONE Infusion Sodium Chloride 500 mls @ 1,000 mls/hr 06/16/24 16:47 06/16/24 17:58 0.9 % Sodium Chloride 500 Ml IV 06/16/24 17:16 Not Given .Q30M ONE Folic Acid 1 mg/ Multivitamins 1,004.2 mls @ 100 mls/hr 06/16/24 22:20 06/16/24 22:48 2 ml/ Thiamine HCl 200 mg/ IV 06/17/24 08:22 Not Given Sodium Chloride .Q10H3M PACO Sodium Chloride 500 mls @ 1,000 mls/hr 06/16/24 22:21 06/16/24 22:47 0.9 % Sodium Chloride 500 Ml IV 06/16/24 22:50 Infused .Q30M ONE Infusion Lorazepam 1 mg 06/16/24 16:31 06/16/24 16:20 Lorazepam 2 Mg/Ml Inj IM 06/16/24 16:32 1 mg ONCE ONE Administration Naloxone HCl 0.4 mg 06/16/24 15:15 06/16/24 15:12 Naloxone 0.4 Mg/Ml Inj IVP 06/16/24 15:16 0.4 mg ONCE ONE Administration Olanzapine 10 mg 06/16/24 16:33 06/16/24 16:35 Olanzapine 5 Mg/Ml Inj IM 06/16/24 16:34 10 mg ONCE ONE Administration Oral Electrolytes 1,014 ml 06/16/24 17:44 06/16/24 17:56 Electrolytes/Dextrose Oral Kristi 1,000 Ml PO 06/16/24 17:45 1,014 ml ONCE ONE Administration Medical Decision Making MDM Narrative Medical decision making narrative: I think less likely this is an opiate ingestion but was given a dose of Narcan shortly after arrival. This did not seem to have any effect. She did flex questions about whether not there may have been some other ingestion although had initially denied ketamine. It is unclear to me whether not there was attempt at an overdose. Clearly has been suffering from depression and has been losing weight and appears to be exhibiting failure to thrive. Once a little more alert did discuss with Shiela that needed urine. She was resistant to this conversation. I was also asking whether not she may have taken anything else. She actually denied taking ketamine but would not tell me what else she had taken and then became more agitated when I asked if it may have been intentional. We had also been discussing placing a catheter if she could not provide us with urine. Initially she quickly pulled out left arm IV and was threatening other lines. Requiring firm physical restraint by myself I called for help to assist with restraint. Ultimately was placed in soft limb restraints and given a mg of Ativan IM as other IV access was inadequate. Still quite upset and trembling and straining at restraints given 10 mg IM Zyprexa. During this escalation I was in intermittent conversation with mom and . Has been more relaxed and were able to discontinue limb restraints. Have gone to talk with her again and has been sleeping. She is willing to accept IV after initially attempting to take Pedialyte for quite some time. She has managed very little oral intake. Will be restarting IV and given normal saline. Will also be giving a banana bag. She is still too sleepy or resistant to discuss the events of today let alone have a more formal psychiatric interview. We are still awaiting urine for drug screen. Pending improved alertness, I would consider Shiela medically cleared at this point for psychiatric interview and admission. Pending further information I would also consider her holdable. I have discussed this with her mother who is staying with her yet tonight. Anticipating hand off at change of shift. Medical Records Medical records reviewed: Yes I reviewed the patient's medical records Lab Data Lab results reviewed: Yes I reviewed the patient's lab results Labs: Lab Results 06/16/24 Range/Units 15:23 WBC 7.35 (4.50-11.00) K/uL RBC 4.41 (4.00-5.20) m/uL Hgb 13.8 (12.0-16.0) gm/dL Hct 41.4 (33.0-51.0) % MCV 94 (80-100) fL MCH 31 (26-34) pg MCHC 33 (32-36) gm/dL RDW Coeff of Cheryl 11.9 (11.5-15.5) % Plt Count 202 (140-440) K/uL Neut % (Auto) 80.5 H (42.0-72.0) % Lymph % (Auto) 12.7 L (20-44) % [place] % (Auto) 6.1 (0.0-11.0) % Eos % (Auto) 0.1 (0.0-7.0) % Baso % (Auto) 0.3 (0.0-3.0) % Neut # (Auto) 5.90 (1.7-7.0) K/uL Lymph # (Auto) 0.90 (0.90-2.90) K/uL [place] # (Auto) 0.40 (0.00-0.90) K/UL Eos # (Auto) 0.01 (0.00-0.50) K/uL Baso # (Auto) 0.02 (0.00-0.30) K/uL Abs Immat Gran (auto) 0.02 (0.00-0.30) K/uL Imm/Tot Granulo (auto) 0.3 % VBG pH 7.329 (7.32-7.43) VBG pCO2 49 (40-50) mmHG VBG pO2 41.0 (25-47) mmHG VBG HCO3 26 (21-28) mmol/L Sodium 145 (135-149) mmol/L Potassium 3.3 L (3.6-5.1) mmol/L Chloride 106 (96-114) mmol/L Carbon Dioxide 24 (20-32) mmol/L Anion Gap 15 (7-15) mEq/L BUN 11 (5-24) mg/dL Creatinine 0.7 (0.5-1.5) mg/dL Estimated Creat Clear 77.11 Estimated GFR 109 ml/min Glucose 88 (60-115) mg/dL Lactate 2.9 H (0.5-1.9) mmol/L Calcium 9.3 (8.4-10.6) mg/dL Total Bilirubin 0.2 (0.1-1.5) mg/dL Direct Bilirubin 0.2 (0.0-0.5) mg/dL AST 33 (12-35) U/L ALT 26 (4-35) U/L Alkaline Phosphatase 70 (40-150) U/L Total Protein 7.0 (6.0-8.3) g/dL Albumin 4.3 (3.3-5.0) g/dL Salicylates < 1.0 L (1.0-10) mg/dL Acetaminophen < 10.0 L (10.0-30.0) ug/mL Ethyl Alcohol < 0.01 L (0.01-0.03) % ECG Data Attestation: I personally reviewed and interpreted this ECG as follows: (Sinus rhythm though with barely distinguishable T-waves. QT C of 688. EKG #2 still with mildly prolonged QTC at 481. T-waves are much more prominent now. Sinus bradycardia 59) Discharge Plan Discharge Clinical Impression: Drug ingestion, Altered mental status, Failure to thrive, Depression, Anxiety Condition: Improved Prescriptions: No Action alprazolam 1 mg tablet 1 mg PO DAILY PRN (Reason: panic attack) alprazolam 0.25 mg tablet 0.25 mg PO PRN (Reason: anxiety) fluvoxamine 100 mg tablet 150 mg PO BID fluvoxamine 50 mg tablet PO guanfacine 1 mg tablet extended release 24 hr 1 mg PO DAILY hydroxyzine HCl 25 mg tablet 25 - 50 mg PO QID PRN (Reason: anxiety) Qty: 30 0RF ondansetron 4 mg tablet,disintegrating 4 mg PO Q4-6H PRN (Reason: nausea/vomiting) Qty: 15 1RF Follow Up/Referrals: Provider,Not a Local [Primary Care Provider] -
[2024-06-16 15:53] LABS: Alanine Aminotransferase* 26 U/L (4-35); Albumin* 4.3 g/dL (3.3-5.0); Alkaline Phosphatase* 70 U/L (40-150); Aspartate Amino Transferase* 33 U/L (12-35); Bilirubin Direct* 0.2 mg/dL (0.0-0.5); Bilirubin Total* 0.2 mg/dL (0.1-1.5); Blood Urea Nitrogen* 11 mg/dL (5-24); Calcium* 9.3 mg/dL (8.4-10.6); Creatinine* 0.7 mg/dL (0.5-1.5); Est. Creatinine Clearance* 77.11; Estimated Glomerular Filt Rate 109 ml/min
[2024-06-16 15:54] LABS: Acetaminophen* < 10.0 ug/mL (10.0-30.0); Ethanol* < 0.01 % (0.01-0.03); Salicylate* < 1.0 mg/dL (1.0-10)
[2024-06-16] MEDS: LORazepam 2 MG/ML inj 1 MG IM (16:20)
[2024-06-16] MEDS: OLANZapine 5 MG/ML inj 10 MG IM (16:35)
[2024-06-16] MEDS: ELECTROLYTES/DEXTROSE ORAL SOL 1,000 ML 1014 ML PO (17:56)
[2024-06-17] VITALS (73 sets, daily range): BP systolic 97–110; BP diastolic 58–75; PULSE 56–96; RESP 12–14; TEMP 36.7; O2SAT 93–99
[2024-06-17 11:41] LABS: Amphetamine Screen Urine Negative (Negative); Barbiturate Screen Urine Negative (Negative); Benzodiazepines Screen Urine POSITIVE (Negative); Cannabinoid Screen Urine POSITIVE (Negative); Cocaine Screen Urine Negative (Negative); Methadone Screen Urine Negative (Negative); Methamphetamines Screen Urine Negative (Negative); Opiate Screen Urine Negative (Negative); Oxycodone Screen Urine Negative (Negative); Phencyclidine Screen Urine POSITIVE (Negative); Tricyclic Antidepressant Urine Negative (Negative)
--- NOTE | 2024-06-17 23:31 | PM.IMHP1 ---
Hospitalist- H&P: HPI History of Present Illness Date Seen: 06/17/24 Chief complaint: ketamine overuse Narrative: ADMISSION HISTORY AND PHYSICAL - HOSPITALIST Chief Complaint: Suicidal attempt, overdose HPI: 44-year-old white female with diagnosis of severe PTSD, depression presented to the ED yesterday by ambulance. She apparently was found unresponsive by her mother. Suspected overdose with ketamine, Xanax. She also vapes marijuana. No alcohol. Her tox screen showed positive benzos, PCP, marijuana. The PCP positivity was likely a false positive from the ketamine. Her ketamine is been prescribed legally by an online clinic. She is prescribed ODT doses. Previously she saw a clinic in the [facility] where she received weekly IV ketamine. She was agitated and uncooperative upon arrival with EMS. She received IM Ativan and IM olanzapine at about 4:00 p.m. yesterday. She has not needed further medical restraints. She has been sleepy and cooperative albeit shaky and eccentric since. She states her PTSD stems from her oldest daughter's medical and psychosocial events. There has been hospitalizations, suicide attempts, disruptive family behaviors. This has led Fany to a very dark time in her life. She has done both outpatient partial hospitalization programs and inpatient residential programs for the chronic anxiety and PTSD. She has a history of gastric bypass and malnutrition. In fact her BMI is only 20. She only takes 4 medications which are for her PTSD: ODT ketamine, Luvox 150 mg b.i.d., Xanax 1 mg b.i.d. p.r.n., Tenex 1 mg extended release for her anxiety driven tremors. She has not seen a psychiatrist since her insurance changed. She has not been able to get to the IV ketamine since her insurance changed. She said since she began the ODT ketamine she has felt in a downward spiral. Things reach to crisis level on . Her daughter, son, and extended family more all stressed and not communicating. Fany said that she just wanted out. She states she does not really remember but that she took all the ODT ketamine she could find and some Ativan and was found only partially responsive by family. ER COURSE: Initial agitation easily managed with IM olanzapine and Ativan. Resting fairly comfortably after. CODE STATUS: FULL CODE EMERGENCY CONTACT PLAN: Olayinka Abdalla Rel To Pat Cell I've updated the [facility], medications and allergies in the [facility] tabs. INVESTIGATIONS: LABS/MICRO/ECG/IMAGING CBC was unremarkable VBG was unremarkable Her potassium was mildly low at 3.3 and her lactate was elevated at 2.9 Tox screen negative for aspirin, acetaminophen or alcohol. Positive for PCP, benzos, marijuana. REVIEW OF SYSTEMS: 12-point ROS completed with patient and negative unless otherwise stated in HPI or below. PHYSICAL EXAM: CONSTITUTIONAL: Resting in bed. No acute distress. Drapes her arms over her head and makes no eye contact. I do ask her to look at me and she does briefly. After some time she is able to get up and walk and take herself to the bathroom and seems more at ease with me. VITAL SIGNS: see record. HEENT: Normocephalic, atraumatic. PERRL, EOMI, conjunctivae pink, no scleral icterus. Ears and nose externally normal. Pharynx normal. NECK: No JVD. No carotid bruit, no thyromegaly, no adenopathy. CHEST: Clear to auscultation bilaterally HEART: S1 and S2 normal. No harsh murmurs. MUSCULOSKELETAL: No gross joint deformity or swelling. NEURO: Cranial nerves intact. Grossly intact. No asymmetric findings. SKIN: No rashes, petechiae, concerning changes PSYCHIATRIC: Fairly euthymic upon my evaluation. During my conversation with her it seems more apparent that she has traits consistent with borderline personality disorder. She is intermittently tremulous, mildly. ADMIT TO MEDSURG: FLOOR CARE -SELF-HARM PRECAUTIONS. CAMERA OR BEDSIDE 1 ON 1 NECESSARY. DVT: Ambulation GI: PO intake Time spent: Today I spent 75 minutes seeing the patient, discussing the patient with ER staff, reviewing [facility] and [facility] notes/diagnostics, discussing the care plan with our care time that includes social work, PT/OT, pharmacy, RT, mcc and documenting my impressions and plan in the medical record. [facility] Medical History (Updated 06/18/24 @ 00:01 by Maria Luz Zaldivar MD) Ketamine dependence ?F16.20 - Hallucinogen dependence, uncomplicated (ICD-10) Cluster B personality disorder in adult ?F60.9 - Personality disorder, unspecified (ICD-10) Chronic post-traumatic stress disorder (PTSD) ?F43.12 - Post-traumatic stress disorder, chronic (ICD-10) Major depression ?F32.9 - Major depressive disorder, single episode, unspecified (ICD-10) Anxiety ?F41.9 - Anxiety disorder, unspecified (ICD-10) Depression ?F32.A - Depression, unspecified (ICD-10) Surgical History (Updated 06/17/24 @ 23:52 by Maria Luz Zaldivar MD) History of bilateral tubal ligation ?Z98.51 - Tubal ligation status (ICD-10) History of laparoscopic cholecystectomy ?Z90.49 - Acquired absence of other specified parts of digestive tract (ICD-10) History of gastric bypass ?Z98.84 - Bariatric surgery status (ICD-10) Family History (Updated 06/17/24 @ 23:55 by Maria Luz Zaldivar MD) Brother Psychiatric illness Brother Psychiatric illness Mother Psoriasis Sister Psoriasis Maternal Grandmother No problems noted. Maternal Grandfather Colon cancer Paternal Grandmother Colon cancer Social History Narrative: Unemployed. . Mother of 2 teenage children. Daughter, Ehsan, lives in a fdc and has significant psychosocial and mental health problems. Nonsmoker. Vapes marijuana. No illicit street drugs. What is your current living situation?: I presently have a place to live Problems where you live: other Problems where you live details: everyone has PTSD and it's very difficult to live in my house. Everyone is very reactive to eachother In the past 12 months, utilities in danger of being shut off: no In the past 12 mos, have been you worried that your food would run out before you had money to buy more?: never true In the past 12 mos, the food you bought just didn't last and you didn't have money to buy more?: never true Smoking Status: Former smoker What tobacco products do you use: cigarettes Years smoked: 7 Smoking quit date/years: <= 15 years ago How often do you have a drink containing alcohol: never AUDIT-C Alcohol total score: 0 Non-prescribed substance use: marijuana (any form) Non-prescribed substance use details: Ketamine Caffeine: Yes (coffee, soda) How often does anyone, including family, friends and others, physically hurt you: never How often does anyone, including family, friends and others, insult or talk down to you: sometimes How often does anyone, including family, friends and others, threaten you with harm: never How often does anyone, including family, friends and others, scream or curse at you: sometimes Health Related Social Needs: Other personal risk factors, not elsewhere classified (Z91.89) Meds Home Medications and Allergies Home Medications ?Medication ?Instructions ?Recorded ?Confirmed ?Type alprazolam 0.25 mg tablet 0.25 mg PO PRN anxiety 02/03/23 History alprazolam 1 mg tablet 1 mg PO DAILY PRN panic attack 02/03/23 02/03/23 History fluvoxamine 100 mg tablet 150 mg PO BID 02/03/23 02/03/23 History fluvoxamine 50 mg tablet mg PO 02/03/23 History guanfacine 1 mg tablet,extended 1 mg PO DAILY 02/03/23 02/03/23 History release 24 hr Ketamine 06/17/24 History Allergies Allergy/AdvReac Type Severity Reaction Status Date / Time No Known Drug Allergies Allergy Verified 02/03/23 04:15 Exam Const: Vital Signs, click to edit/add: Vital Signs - 24 hr 06/17/24 00:00 06/17/24 01:00 06/17/24 02:00 Temperature Pulse Rate Pulse Rate [Pulse Oximeter] 61 59 L 56 L Respiratory Rate 14 14 12 Blood Pressure Blood Pressure [Le ft Upper Arm] 105/73 109/69 104/72 Pulse Oximetry 95 96 96 Oxygen Delivery Vt thod Room Air Room Air Room Air 06/17/24 02:30 06/17/24 02:45 06/17/24 03:00 Temperature Pulse Rate 59 L 60 59 L Pulse Rate [Pulse Oximeter] Respiratory Rate Blood Pressure Blood Pressure [Le ft Upper Arm] Pulse Oximetry 96 96 97 Oxygen Delivery Vt thod Room Air 06/17/24 03:02 06/17/24 03:15 06/17/24 03:30 Temperature Pulse Rate 59 L 59 L 58 L Pulse Rate [Pulse Oximeter] Respiratory Rate 14 Blood Pressure 104/69 Blood Pressure [Le ft Upper Arm] Pulse Oximetry 97 96 97 Oxygen Delivery Vt thod Room Air 06/17/24 03:45 06/17/24 04:00 06/17/24 04:02 Temperature Pulse Rate 60 59 L 59 L Pulse Rate [Pulse Oximeter] Respiratory Rate Blood Pressure 101/64 Blood Pressure [Le ft Upper Arm] Pulse Oximetry 96 97 97 Oxygen Delivery Me thod 06/17/24 04:03 06/17/24 04:15 06/17/24 04:30 Temperature Pulse Rate 60 57 L 60 Pulse Rate [Pulse Oximeter] Respiratory Rate Blood Pressure Blood Pressure [Le ft Upper Arm] Pulse Oximetry 97 96 96 Oxygen Delivery Me thod 06/17/24 04:45 06/17/24 05:00 06/17/24 05:01 Temperature Pulse Rate 61 61 59 L Pulse Rate [Pulse Oximeter] Respiratory Rate Blood Pressure 101/66 Blood Pressure [Le ft Upper Arm] Pulse Oximetry 96 96 96 Oxygen Delivery Me thod 06/17/24 05:15 06/17/24 05:30 06/17/24 05:45 Temperature Pulse Rate 64 66 63 Pulse Rate [Pulse Oximeter] Respiratory Rate Blood Pressure Blood Pressure [Le ft Upper Arm] Pulse Oximetry 96 96 96 Oxygen Delivery Me thod 06/17/24 06:00 06/17/24 06:02 06/17/24 06:15 Temperature Pulse Rate 63 65 62 Pulse Rate [Pulse Oximeter] Respiratory Rate Blood Pressure 109/73 Blood Pressure [Le ft Upper Arm] Pulse Oximetry 96 96 96 Oxygen Delivery Me thod 06/17/24 06:30 06/17/24 06:45 06/17/24 07:00 Temperature Pulse Rate 66 67 68 Pulse Rate [Pulse Oximeter] Respiratory Rate Blood Pressure Blood Pressure [Le ft Upper Arm] Pulse Oximetry 96 98 96 Oxygen Delivery Me thod 06/17/24 07:01 06/17/24 07:15 06/17/24 07:30 Temperature Pulse Rate 67 68 68 Pulse Rate [Pulse Oximeter] Respiratory Rate Blood Pressure 110/75 Blood Pressure [Le ft Upper Arm] Pulse Oximetry 97 96 96 Oxygen Delivery Me thod 06/17/24 07:45 06/17/24 08:00 06/17/24 08:02 Temperature Pulse Rate 65 67 68 Pulse Rate [Pulse Oximeter] Respiratory Rate Blood Pressure 104/69 Blood Pressure [Le ft Upper Arm] Pulse Oximetry 95 95 95 Oxygen Delivery Me thod 06/17/24 08:15 06/17/24 08:30 06/17/24 08:45 Temperature Pulse Rate 70 67 71 Pulse Rate [Pulse Oximeter] Respiratory Rate Blood Pressure Blood Pressure [Le ft Upper Arm] Pulse Oximetry 96 95 95 Oxygen Delivery Me thod 06/17/24 09:00 06/17/24 09:02 06/17/24 09:15 Temperature Pulse Rate 75 71 89 Pulse Rate [Pulse Oximeter] Respiratory Rate Blood Pressure 100/61 Blood Pressure [Le ft Upper Arm] Pulse Oximetry 96 96 99 Oxygen Delivery Me thod 06/17/24 09:30 06/17/24 09:45 06/17/24 10:00 Temperature Pulse Rate 72 73 75 Pulse Rate [Pulse Oximeter] Respiratory Rate Blood Pressure Blood Pressure [Le ft Upper Arm] Pulse Oximetry 96 96 95 Oxygen Delivery Me thod 06/17/24 10:02 06/17/24 10:15 06/17/24 10:30 Temperature Pulse Rate 72 72 72 Pulse Rate [Pulse Oximeter] Respiratory Rate Blood Pressure 98/60 Blood Pressure [Le ft Upper Arm] Pulse Oximetry 96 95 96 Oxygen Delivery Me thod 06/17/24 10:45 06/17/24 11:00 06/17/24 11:02 Temperature Pulse Rate 74 73 72 Pulse Rate [Pulse Oximeter] Respiratory Rate Blood Pressure 98/60 Blood Pressure [Le ft Upper Arm] Pulse Oximetry 96 96 96 Oxygen Delivery Me thod 06/17/24 13:33 06/17/24 13:45 06/17/24 14:00 Temperature Pulse Rate 84 86 79 Pulse Rate [Pulse Oximeter] Respiratory Rate Blood Pressure Blood Pressure [Le ft Upper Arm] Pulse Oximetry 96 96 94 Oxygen Delivery Me thod 06/17/24 14:15 06/17/24 14:30 06/17/24 14:45 Temperature Pulse Rate 86 96 96 Pulse Rate [Pulse Oximeter] Respiratory Rate Blood Pressure Blood Pressure [Le ft Upper Arm] Pulse Oximetry 96 96 96 Oxygen Delivery Me thod 06/17/24 15:00 06/17/24 15:15 06/17/24 15:30 Temperature Pulse Rate 91 87 81 Pulse Rate [Pulse Oximeter] Respiratory Rate Blood Pressure Blood Pressure [Le ft Upper Arm] Pulse Oximetry 97 97 95 Oxygen Delivery Me thod 06/17/24 15:45 06/17/24 16:00 06/17/24 16:15 Temperature Pulse Rate 91 91 85 Pulse Rate [Pulse Oximeter] Respiratory Rate Blood Pressure Blood Pressure [Le ft Upper Arm] Pulse Oximetry 95 95 93 Oxygen Delivery Me thod 06/17/24 16:30 06/17/24 17:30 06/17/24 18:00 Temperature Pulse Rate 90 93 82 Pulse Rate [Pulse Oximeter] Respiratory Rate Blood Pressure Blood Pressure [Le ft Upper Arm] Pulse Oximetry 94 96 95 Oxygen Delivery Me thod Room Air Room Air 06/17/24 18:30 06/17/24 19:00 06/17/24 19:30 Temperature Pulse Rate 81 86 79 Pulse Rate [Pulse Oximeter] Respiratory Rate Blood Pressure Blood Pressure [Le ft Upper Arm] Pulse Oximetry 94 95 95 Oxygen Delivery Me thod 06/17/24 20:00 06/17/24 20:30 06/17/24 21:30 Temperature Pulse Rate 81 75 86 Pulse Rate [Pulse Oximeter] Respiratory Rate Blood Pressure Blood Pressure [Le ft Upper Arm] Pulse Oximetry 96 96 96 Oxygen Delivery Me thod Room Air Room Air Room Air 06/17/24 22:00 06/17/24 22:06 06/17/24 22:44 Temperature 98.0 F 98.0 F Pulse Rate Pulse Rate [Pulse Oximeter] 90 Respiratory Rate 12 12 Blood Pressure Blood Pressure [Le ft Upper Arm] 97/58 L Pulse Oximetry 96 96 Oxygen Delivery Me thod Room Air 06/17/24 22:44 06/17/24 23:00 Temperature Pulse Rate Pulse Rate [Pulse Oximeter] Respiratory Rate 12 12 Blood Pressure Blood Pressure [Le ft Upper Arm] Pulse Oximetry 96 Oxygen Delivery Me thod Room Air Assessment and Plan Assessment and plan (1) Ketamine overdose: Problem comment: -intentional. Has been on hold in the ED. her behaviors have been home after initial agitation. She will be on suicide watch, 1:1 care. We are still purposefully looking for inpatient psych care. She states that the suicidal ideations are still present, ?in the background. She says going home is full of triggers. Status: Acute (2) Intentional overdose: Problem comment: -in part seems to be attention seeking, poor coping and insight. Cluster B traits evident. Status: Acute (3) Tremor: Problem comment: -psychogenic in origin per records. Is distractible. Vacillates with anxiety. Status: Acute (4) Cluster B personality disorder in adult: Problem comment: -borderline, histrionic traits present Status: Acute (5) Elevated lactic acid level: Problem comment: -has received fluids, will follow-up on this. Not considered septic at any point. Status: Acute (6) Acute hypokalemia: Problem comment: -will trend, recheck in the morning Status: Acute (7) Ketamine dependence: Problem comment: -legally prescribed for PTSD Status: Acute (8) Chronic post-traumatic stress disorder (PTSD): Problem comment: -multiple family stressors Status: Acute (9) Major depression: Problem comment: -Luvox 150 mg b.i.d. Status: Acute
[2024-06-18 01:00] LABS: Ur HCG Qualitative* Negative (Negative)
[2024-06-18 05:45] VITALS: BP 110/71; PULSE 75; RESP 16; O2SAT 99
[2024-06-18 07:05] LABS: Lactate* 0.5 mmol/L (0.5-1.9)
[2024-06-18 07:09] LABS: Hematocrit 37.6 % (33.0-51.0); Hemoglobin* 12.4 gm/dL (12.0-16.0); Mean Corpuscular HGB Conc 33 gm/dL (32-36); Mean Corpuscular Hemoglobin 31 pg (26-34); Mean Corpuscular Volume 95 fL (80-100); Platelet Count* 162 K/uL (140-440); Red Blood Count 3.96 m/uL (4.00-5.20); White Blood Count* 4.64 K/uL (4.50-11.00)
[2024-06-18 07:13] LABS: Slide Review Reflex No
[2024-06-18 07:25] LABS: Chloride* 106 mmol/L (96-114)
[2024-06-18 07:26] LABS: Potassium* 3.9 mmol/L (3.6-5.1); Sodium* 138 mmol/L (135-149)
[2024-06-18 07:28] LABS: Creatinine* 0.6 mg/dL (0.5-1.5); Est. Creatinine Clearance* 89.43; Estimated Glomerular Filt Rate 113 ml/min
[2024-06-18 07:29] LABS: Anion Gap 16 mEq/L (7-15); Blood Urea Nitrogen* 6 mg/dL (5-24); Calcium* 8.7 mg/dL (8.4-10.6); Carbon Dioxide* 16 mmol/L (20-32)
--- NOTE | 2024-06-18 07:34 | PC.NURSE ---
Pt alert and oriented x3. Afebrile. Pt denies pain, SOB, chest pain, and N/V. Pt slept throughout most of night. Night uneventful. ?
[2024-06-18 07:40] LABS: Glucose* 47 mg/dL (60-115)
[2024-06-18 07:59] LABS: Thyroid Stimulating Hormone* 0.493 uIU/mL (0.270-4.20)
--- NOTE | 2024-06-18 10:33 | PM.IMPN1 ---
Progress Note: A&P Assessment and plan (1) Ketamine overdose: Problem details: -intentional. Placed on a hold in the ED. Has remained calm and cooperative on the floor following initial episode of agitation in ED -Suicide watch, 1:1 care -licensed social worker assisting in finding inpatient psych placement. She states that the suicidal ideations are still present, ?in the background. She says going home is full of triggers. Status: Acute (2) Intentional overdose: Problem details: -in part seems to be attention seeking, poor coping and insight. Cluster B traits evident. Status: Acute (3) Tremor: Problem details: -psychogenic in origin per records. Is distractible. Vacillates with anxiety. Status: Acute (4) Cluster B personality disorder in adult: Problem details: -borderline, histrionic traits present Status: Acute (5) Elevated lactic acid level: Problem details: -likely dehydration (carbon dioxide 16, anion gap 16) -has received fluids, will follow-up on this. Not considered septic at any point. Improved to 0.5 Status: Resolved (6) Acute hypokalemia: Problem details: -will trend, recheck in the morning. Improved to 3.9 Status: Resolved (7) Ketamine dependence: Problem details: -legally prescribed for PTSD Status: Acute (8) Chronic post-traumatic stress disorder (PTSD): Problem details: -multiple family stressors Status: Acute (9) Major depression: Problem details: -Luvox 150 mg b.i.d. Status: Acute (10) Hypoglycemia: Problem details: -glucose 47 this morning. Improved with oral intake -admits to withholding food/restricting eating -discussed with patient will need to have adequate oral intake while hospitalized. Glucose checks ACHS Status: Acute Plan Awaiting inpatient psychiatric placement, licensed social worker assisting. 1:1. Suicide precautions. 72 hour hold (06/18/24 00:00) Time Spent With Patient Total time spent: Total time spent caring for the patient today was 45 minutes. This includes time spent for the visit reviewing the chart, time spent during the visit, time spent after the visit and documentation and planning in coordination of care. Subjective Date Seen: 06/18/24 Interval history: Patient is seen with her mother at bedside, verbalizes she is fine with her mother in the room during our visit. Currently, denies headache or dizziness. Denies chest pain or shortness of breath. No nausea or vomiting. Blood sugar this morning was 47. She admits withholding oral intake/restrictive eating in general, more so when her depression is worse. Tells us she only eat chicken, bananas, fresh fruit, and Pepsi. Labs indicate mild dehydration with carbon dioxide 16 and anion gap 16. Lactate has normalized following IVF. Previous inpatient hospitalization was in [place] and was a bad experience for her. Is currently on a 72 hour hold, effective midnight 06/18/2024, as was placed on a weekend. Suicidal precautions in place. Exam Narrative: Exam Narrative: PHYSICAL EXAM General: Flat, otherwise appropriately conversant, NAD HEENT: Normocephalic, atraumatic, sclera white, EOMI, oral mucosa moist Cardiovascular: RRR, S1S2. No pitting edema Pulmonary: CTA bilaterally without rhonchi, rales, expiratory wheezes. No dyspnea Neurological: Alert, answering questions appropriately, cranial nerves intact, no focal findings Extremities: No gross joint deformity or swelling. AROMI. Neurovascularly intact Skin: Warm, dry. Const: Vital Signs, click to edit/add: Vital Signs - 24 hr 06/17/24 10:45 06/17/24 11:00 06/17/24 11:02 Temperature Pulse Rate 74 73 72 Pulse Rate [Pulse Oximeter] Respiratory Rate Blood Pressure 98/60 Blood Pressure [Le ft Arm] Blood Pressure [Le ft Upper Arm] Pulse Oximetry 96 96 [facility] 13:33 06/17/24 13:45 06/17/24 14:00 Temperature Pulse Rate 84 86 79 Pulse Rate [Pulse Oximeter] Respiratory Rate Blood Pressure Blood Pressure [Le ft Arm] Blood Pressure [Le ft Upper Arm] Pulse Oximetry 96 96 94 [facility] 06/17/24 14:15 06/17/24 14:30 06/17/24 14:45 Temperature Pulse Rate 86 96 96 Pulse Rate [Pulse Oximeter] Respiratory Rate Blood Pressure Blood Pressure [Le ft Arm] Blood Pressure [Le ft Upper Arm] Pulse Oximetry 96 96 96 [facility] 06/17/24 15:00 06/17/24 15:15 06/17/24 15:30 Temperature Pulse Rate 91 87 81 Pulse Rate [Pulse Oximeter] Respiratory Rate Blood Pressure Blood Pressure [Le ft Arm] Blood Pressure [Le ft Upper Arm] Pulse Oximetry 97 97 95 Oxygen Delivery Me thod 06/17/24 15:45 06/17/24 16:00 06/17/24 16:15 Temperature Pulse Rate 91 91 85 Pulse Rate [Pulse Oximeter] Respiratory Rate Blood Pressure Blood Pressure [Le ft Arm] Blood Pressure [Le ft Upper Arm] Pulse Oximetry 95 95 93 Oxygen Delivery Me thod 06/17/24 16:30 06/17/24 17:30 06/17/24 18:00 Temperature Pulse Rate 90 93 82 Pulse Rate [Pulse Oximeter] Respiratory Rate Blood Pressure Blood Pressure [Le ft Arm] Blood Pressure [Le ft Upper Arm] Pulse Oximetry 94 96 95 Oxygen Delivery Me thod Room Air Room Air 06/17/24 18:30 06/17/24 19:00 06/17/24 19:30 Temperature Pulse Rate 81 86 79 Pulse Rate [Pulse Oximeter] Respiratory Rate Blood Pressure Blood Pressure [Le ft Arm] Blood Pressure [Le ft Upper Arm] Pulse Oximetry 94 95 95 Oxygen Delivery Me thod 06/17/24 20:00 06/17/24 20:30 06/17/24 21:30 Temperature Pulse Rate 81 75 86 Pulse Rate [Pulse Oximeter] Respiratory Rate Blood Pressure Blood Pressure [Le ft Arm] Blood Pressure [Le ft Upper Arm] Pulse Oximetry 96 96 96 Oxygen Delivery Me thod Room Air Room Air Room Air 06/17/24 22:00 06/17/24 22:06 06/17/24 22:44 Temperature 98.0 F 98.0 F Pulse Rate Pulse Rate [Pulse Oximeter] 90 Respiratory Rate 12 12 Blood Pressure Blood Pressure [Le ft Arm] Blood Pressure [Le ft Upper Arm] 97/58 L Pulse Oximetry 96 96 Oxygen Delivery Me thod Room Air 06/17/24 22:44 06/17/24 23:00 06/18/24 05:45 Temperature Pulse Rate Pulse Rate [Pulse Oximeter] 75 Respiratory Rate 12 12 16 Blood Pressure Blood Pressure [Le ft Arm] 110/71 Blood Pressure [Le ft Upper Arm] Pulse Oximetry 96 99 Oxygen Delivery Me thod Room Air Room Air Labs Labs: Laboratory Results - last 24 hr 06/16/24 06/18/24 06/18/24 11:27 00:42 06:57 WBC 4.64 RBC 3.96 L Hgb 12.4 Hct 37.6 MCV 95 MCH 31 MCHC 33 Plt Count 162 Sodium 138 Potassium 3.9 Chloride 106 Carbon Dioxide 16 L Anion Gap 16 H BUN 6 Creatinine 0.6 Estimated Creat Clear 89.43 Estimated GFR 113 Glucose 47 L* Lactate 0.5 Calcium 8.7 TSH 0.493 Urine HCG, Qual Urine Opiates Screen Negative Ur Oxycodone Screen Negative Urine Methadone Screen Negative Ur Barbiturates Screen Negative U Tricyclic Antidepress Negative Ur Phencyclidine Scrn POSITIVE A Ur Amphetamines Screen Negative U Methamphetamines Scrn Negative U Benzodiazepines Scrn POSITIVE A Urine Cocaine Screen Negative U Marijuana (THC) Screen POSITIVE A Ur Drug Screen Comment See Note Lab Acknowledgement Test Added 06/18/24 Unknown WBC RBC Hgb Hct MCV MCH MCHC Plt Count Sodium Potassium Chloride Carbon Dioxide Anion Gap BUN Creatinine Estimated Creat Clear Estimated GFR Glucose Lactate Calcium TSH Urine HCG, Qual Negative Urine Opiates Screen Ur Oxycodone Screen Urine Methadone Screen Ur Barbiturates Screen U Tricyclic Antidepress Ur Phencyclidine Scrn Ur Amphetamines Screen U Methamphetamines Scrn U Benzodiazepines Scrn Urine Cocaine Screen U Marijuana (THC) Screen Ur Drug Screen Comment Lab Acknowledgement
[2024-06-18 10:56] VITALS: BP 112/62; PULSE 91; RESP 16; TEMP 37.2; O2SAT 99
[2024-06-18] MEDS: FLUOXETINE HCL 20 MG CAPSULE PO (11:20)
[2024-06-18] MEDS: FLUOXETINE HCL 10 MG CAPSULE PO (11:20)
--- NOTE | 2024-06-18 14:06 | PC.NURSE ---
end of shift. pt has been alert x4. no pain. no SL. BS was 46 by lab this am finger check it was 40 apple juice and sugar and Pedialyte was given. later BS was 103 and 11am was 88. pt got fruit, banana and powerade. she has only eating a few bites and a few sip. later her mom bought her some soup and she has a few bites of that. encouraged her to eat and drink more to keep her blood sugars elevated., PA also told patient the same things. she is on a 72 hour hold and is a one to one pt. she is up ab nils in the room. she is in a hospital gown and is aware. she can have her phone she has headset on. she was told no soical media, or she can loose her phone use. she has been sleeping. belonging sheet done and item are in the med room. she taked meds with no problems. pt is on suicide precauations, she staff is in room or watching on camera out side of the room.
[2024-06-18 15:00] VITALS: BP 118/73; PULSE 94; RESP 14; TEMP 37.1; O2SAT 99
--- NOTE | 2024-06-18 16:23 | PC.SOCIAL ---
Social work: Pt remains in need of a mental health in-pt placement. Called [facility] and requested they contact facilities for placement. [facility] will call the identified facilities and give back to RN and social work for placement if no available placement is located.
[2024-06-18 19:00] VITALS: BP 109/72; PULSE 89; RESP 16; TEMP 37.1; O2SAT 98
[2024-06-18] MEDS: PRAZOSIN HCL 1 MG CAPSULE 3 MG PO (21:19)
--- NOTE | 2024-06-18 23:17 | PC.NURSE ---
End of Shift: Patient pleasant and cooperative. Denies pain. Up independently in room. Tolerating regular diet with no nausea. Blood glucose 115 and 97. Patient changed in to paper scrubs. [facility] Nurse to nurse repost given to Dayan. Patient updated that she will be unable to have cell phone at receiving facility and agreed with plan. 1:1 throughout shift.
--- NOTE | 2024-06-19 01:39 | PC.NURSE ---
Pt transferred via EMS to [facility] in [place] at 0135. VSS, pt HR increased while transferring into EMS bed, pt verbalized she was feeling anxious, we reviewed relaxation and breathing techniques.
--- NOTE | 2024-06-20 12:55 | P.DS_ITS ---
DS: Providers Provider Date Seen: 06/20/24 Date of admission: 06/17/24 23:55 Primary care physician: Not a Local Provider Admitting Clinician: Maria Luz Zaldivar MD Consults: 06/17/24 23:04 Consult to Medical Staffing Coordinator [CONS] Routine Comment: Reason for Consult:: Suicide Risk 06/17/24 23:55 Consult to Medical Staffing Coordinator [CONS] Routine Comment: Reason for Consult:: Social Service Consult Attending Physician on discharge: Kika Garduno MD Date of Discharge: 06/18/24 DS: Diagnosis Discharge Diagnosis (1) Ketamine overdose: Status: Acute Problem details: -intentional. Placed on a hold in the ED. Has remained calm and cooperative on the floor following initial episode of agitation in ED -Suicide watch, 1:1 care -executive secretary social welfare assisting in finding inpatient psych placement. She states that the suicidal ideations are still present, ?in the background. She says going home is full of triggers. (2) Intentional overdose: Status: Acute Problem details: -in part seems to be attention seeking, poor coping and insight. Cluster B traits evident. (3) Tremor: Status: Acute Problem details: -psychogenic in origin per records. Is distractible. Vacillates with anxiety. (4) Cluster B personality disorder in adult: Status: Acute Problem details: -borderline, histrionic traits present (5) Elevated lactic acid level: Status: Resolved Problem details: -likely dehydration (carbon dioxide 16, anion gap 16) -has received fluids, will follow-up on this. Not considered septic at any poi nt. Improved to 0.5 (6) Acute hypokalemia: Status: Resolved Problem details: -will trend, recheck in the morning. Improved to 3.9 (7) Ketamine dependence: Status: Acute Problem details: -legally prescribed for PTSD (8) Chronic post-traumatic stress disorder (PTSD): Status: Acute Problem details: -multiple family stressors (9) Major depression: Status: Acute Problem details: -Luvox 150 mg b.i.d. (10) Hypoglycemia: Status: Acute Problem details: -glucose 47 this morning. Improved with oral intake -admits to withholding food/restricting eating -discussed with patient will need to have adequate oral intake while hospitalized. Glucose checks ACHS DS: Summary Hospital Course Hospital Course: Patient transferred to [facility] psychiatric facility, transferred on hold. Status at Discharge Functional status at discharge: independent ambulation Overall status at discharge: patient is not back to baseline Time Spent with Patient Time attestation: Total time spent providing and/or coordinating discharge services: Time spent: Greater than 30 minutes Exam Narrative: Exam Narrative: PHYSICAL EXAM General: Alert NAD Cardiovascular: RRR Pulmonary: No dyspnea Neurological: Alert, answering questions appropriately Skin: Warm, dry. Discharge Plan Discharge Disposition: Xfer Other Date of Admission: 06/17/24 23:55 Attending Provider on Discharge: Kika Garduno Primary Care Provider: Provider,Not a Local Condition: Improved Discharge Medications: Continued prazosin 1 mg capsule 3 mg PO HS doxepin 10 mg capsule 10 mg PO QPM alprazolam 0.5 mg tablet 0.5 mg PO BID PRN Rx Instructions: 0.5MG EVERY MORNING, AND NEEDED IN THE AFTERNOON fluoxetine 10 mg capsule 10 mg PO DAILY Rx Instructions: TAKING WITH 20 MG TABLET FOR TOTAL OF 30 MG DAILY DOSE. fluoxetine 20 mg capsule 20 mg PO DAILY Rx Instructions: TAKING WITH 10 MG TABLET FOR TOTAL DAILY DOSE OF 30 MG guanfacine 2 mg tablet extended release 24 hr 2 mg PO HS fluvoxamine 50 mg tablet 150 mg PO BID ondansetron 4 mg tablet,disintegrating PO cholecalciferol (vitamin D3) 125 mcg (5,000 unit) capsule 125 mcg PO DAILY Ketamine 250 MG EVERY TUESDAY Discharge Orders: Discharge Order (Routine); Ordered 06/20/24 Ordered By: Carmen Vásquez Transfer of Care to Other Hospital (ORDER); Ordered 06/18/24 Ordered By: Kika Garduno Follow Up Appointments: Provider,Not a Local [Primary Care Provider] - Forms: [place] [place] Info Instructions Discharge Comments: Discharge location, [facility]
== END 2024-06-19 01:35 | DRG 918 ==
LOC: ED 06-17 20:08 → MEDSURG 06-17 22:37
PROVIDERS: Admitting Provider Family Medicine; Emergency Provider Family Medicine; Visit Provider Family Medicine
DX: T41.292A Poisoning by other general anesthetics, intentional self-harm, initial encounter (principal); Z68.1 Body mass index [BMI] 19.9 or less, adult; F16.20 Hallucinogen dependence, uncomplicated; T14.91XA Suicide attempt, initial encounter; R41.82 Altered mental status, unspecified; F32.A Depression, unspecified; F41.9 Anxiety disorder, unspecified; R62.7 Adult failure to thrive; R45.1 Restlessness and agitation; F43.10 Post-traumatic stress disorder, unspecified; F60.89 Other specific personality disorders; F43.12 Post-traumatic stress disorder, chronic; Z98.84 Bariatric surgery status; Z63.79 Other stressful life events affecting family and household; Z63.8 Other specified problems related to primary support group; Z87.891 Personal history of nicotine dependence; R25.1 Tremor, unspecified; E87.6 Hypokalemia; F32.9 Major depressive disorder, single episode, unspecified; R74.02 Elevation of levels of lactic acid dehydrogenase [LDH]; E16.2 Hypoglycemia, unspecified; F50.82 Avoidant/restrictive food intake disorder; F12.90 Cannabis use, unspecified, uncomplicated
CPT/HCPCS: 36415; 80048; 80076; 80143; 80179; 80306; 81025; 82077; 82803; 82962; 83605; 84443; 85025; 85027; 93005; 94761; 99284; 99285; A9270; J2060; J2310; J3411; J7030

== ENCOUNTER 2024-06-19 01:23 | Outpatient (CLI) | payer OTHER, SELFPAY ==
--- OUTSIDE RECORDS SUMMARY | 2024-06-22 01:58 | XMS_ITS | Referral Summary ---
Author Organization [facility] Address [address] [place] [address] Care Team Providers Care Metal Flow Coordinator Name Role Phone Morena Paredes MD Primary Care Provider [phone] Morena Paredes MD Unavailable [phone] Allergies No known active allergies Medications Cholecalciferol (VITAMIN D-3) 125 MCG (4800 UT) TABS Take 1 capsule by mouth [...] Administration Dates Next Due Flu, Unspecified 03/27/2015 [id number] Novel Flu 06/10/2009 Influenza (IIV3) PF 03/18/2016, [...] in an abandoned building, in an overnight usp, or couch-surfing.) Yes 08/02/2023 Are you worried [...] on file Legal Sex Female 3:31 PM FLOORING GRADER Gender Identity Not on file Sexual Orientation Not on file Last Filed Vital Signs Vital Sign Reading Time Taken Comments Blood Pressure 90/60 08/02/2023 9:54 AM FLOORING GRADER Pulse 88 08/02/2023 9:54 AM FLOORING GRADER Temperature 36.6 C (97.9 F) 08/02/2023 9:54 AM FLOORING GRADER Respiratory Rate 18 08/02/2023 9:54 AM FLOORING GRADER Oxygen Saturation 99% 08/02/2023 9:54 AM FLOORING GRADER Inhaled Oxygen Concentration - - Weight 54.4 kg (119 lb 14.4 oz) 08/02/2023 9:54 AM FLOORING GRADER Height 156.8 cm (5' 1.75) 08/02/2023 9:54 AM CS T Body Mass Index 22.11 08/02/2023 9:54 AM FLOORING GRADER Plan of Treatment Upcoming Encounters Date Type Department Care Team (Late st Contact Info) Description 06/29/2024 9:30 AM FLOORING GRADER Office Visit [facility] [address] [place] [address] Morena Paredes MD [address] [facility] [place] [id number] Procedures Procedure Name Priority Date/Time Associated Diagnosis [...] - 10/17/2020 8:44 AM CDT See Care Everywhere-[facility] [employer] [facility] us Provider Outside LAB - HIM EXTERNAL RESULT Final Result Performing Organization Address City/[facility]/ZIP Co de Phone Number [facility] [address] [phone] * Abstract HPV (HIM External Result) (12/13/2018 9:15 AM CDT) HPV Abstract See Scanned Document [facility] 12/13/2018 9:15 AM CDT Narrative [facility] - 12/13/2018 9:15 AM CDT See [facility] us Provider Outside LAB - HIM EXTERNAL RESULT Final Result [facility] [address] [place] [address], [facility] from Last 3 Months or Most Recently Relevant to Health Maintenance Insurance [facility] [employer] Care Teams Metal Flow Coordinator Relationship Specialty [place] [address] [place] [id number] PCP - General Internal Medicine - Pediatrics 12/14/22 [place] [address] [place] [id number] Assigned PCP 08/11/23
--- OUTSIDE RECORDS SUMMARY | 2024-06-22 01:58 | XMS_ITS | Clinical Summary ---
Author Organization [facility] Address [address] [place] [address] Care Team Providers Care Fuel Yard Operator Name Role Phone Morena Paredes MD Primary Care Provider [phone] Morena Paredes MD Unavailable [phone] Allergies No known active allergies Medications Cholecalciferol (VITAMIN D-3) 125 MCG (5714 UT) TABS Take 1 capsule by mouth [...] Administration Dates Next Due Flu, Unspecified 03/27/2015 [id number] Novel Flu 06/10/2009 Influenza (IIV3) PF 03/18/2016, [...] in an abandoned building, in an overnight retirement, or couch-surfing.) Yes 08/02/2023 Are you worried [...] on file Legal Sex Female 3:31 PM PINKING SEWING MACHINE OPERATOR Gender Identity Not on file Sexual Orientation Not on file Last Filed Vital Signs Vital Sign Reading Time Taken Comments Blood Pressure 90/60 08/02/2023 9:54 AM PINKING SEWING MACHINE OPERATOR Pulse 88 08/02/2023 9:54 AM PINKING SEWING MACHINE OPERATOR Temperature 36.6 C (97.9 F) 08/02/2023 9:54 AM PINKING SEWING MACHINE OPERATOR Respiratory Rate 18 08/02/2023 9:54 AM PINKING SEWING MACHINE OPERATOR Oxygen Saturation 99% 08/02/2023 9:54 AM PINKING SEWING MACHINE OPERATOR Inhaled Oxygen Concentration - - Weight 54.4 kg (119 lb 14.4 oz) 08/02/2023 9:54 AM PINKING SEWING MACHINE OPERATOR Height 156.8 cm (5' 1.75) 08/02/2023 9:54 AM CS T Body Mass Index 22.11 08/02/2023 9:54 AM PINKING SEWING MACHINE OPERATOR Plan of Treatment Upcoming Encounters Date Type Department Care Team (Late st Contact Info) Description 06/29/2024 9:30 AM PINKING SEWING MACHINE OPERATOR Office Visit [facility] [address] [place] [address] Morena Paredes MD [address] [facility] [place] [id number] Health Maintenance Due Date Last Done Comments [...] Cholesterol (External) 181 100 - 199 mg/dL [facility] Triglycerides (External) 58 <150 mg/dL [facility] HDL Cholesterol (External) 56 >40 mg/dL [facility] LDL Cholesterol Calculated (External) 113 <=130 mg/dL [facility] Non HDL Cholesterol (External) 125 <145 mg/dL [facility] Blood 10/17/2020 8:44 AM CDT Narrative [facility] - 10/17/2020 8:44 AM CDT See Care Everywhere-[facility] Provider Outside LAB - HIM EXTERNAL RESULT Final Result [facility] [address] [id number] [phone] * Abstract HPV (HIM External Result) (12/13/2018 9:15 AM CDT) HPV Abstract See Scanned Document [facility] 12/13/2018 9:15 AM CDT Narrative [facility] - 12/13/2018 9:15 AM CDT [facility] us Provider Outside LAB - HIM EXTERNAL RESULT Final Result Performing Organization Address City/[facility]/ZIP Co de Phone Number [facility] [address] from Last 3 Months or Most Recently Relevant to Health Maintenance Insurance [facility] Care Teams Fuel Yard Operator Relationship Specialty Start Date End Date Morena Paredes MD [address] [place] [address] PCP - General Internal Medicine - Pediatrics 12/14/22 [place] [address] [place] [id number] Assigned PCP 08/11/23
== END 2024-06-19 01:24 | disposition home or self-care (01) ==
LOC: AMB 06-22 01:55
PROVIDERS: Visit Provider Family Medicine
DX: R45.851 Suicidal ideations (principal)
CPT/HCPCS: A0425; A0428

== ENCOUNTER 2024-07-23 20:01 | Emergency (ER) | payer OTHER, SELFPAY ==
[2024-07-23 20:10] VITALS: BP 102/70; PULSE 106; RESP 16; TEMP 36.3; O2SAT 99; BMI 19.8
--- OUTSIDE RECORDS SUMMARY | 2024-07-23 21:07 | XMS_ITS | Referral Summary ---
Author Organization [place] Address [address] [place] [address] Care Team Providers Care Dust Collector Attendant Name Role Phone Morena Paredes MD Primary Care Provider [phone] Morena Paredes MD Unavailable [phone] Encounters Date Type Department Care Team Description 06/29/2024 Travel 06/29/2024 9:30 AM MISSILE MECHANIC Office Visit [address] [place] [phone] Morena Paredes MD Suicide attempt by benzodiazepine overdose (H) (Primary Dx); PTSD (post-traumatic stress disorder); Elevated liver enzymes; Vitamin B12 deficiency (non anemic); Need for prophylactic vaccination and inoculation against influenza; High priority for 2019-nCoV vaccine from Last 3 Months Allergies No known active allergies Medications Cholecalcifero l (VITAMIN D-3) 125 MCG (5000 UT) TABS Take 1 capsule by mouth daily 07/26/19 24 Active ALPRAZolam (XANAX) 0.5 MG tablet Take 0.5 mg by mouth 2 times daily as needed for anxiety 07/26/19 24 Active doxepin (SINEQUAN) 10 MG capsule Take 10 mg by mouth at bedtime 07/29/19 24 Active fluvoxaMINE (LUVOX) 50 MG tablet Take 50 mg by mouth daily Total 150mg daily 07/12/20 23 Active guanFACINE (INTUNIV) 2 MG TB24 24 hr tablet Take 2 mg by mouth at bedtime 04/15/20 23 Active prazosin (MINIPRESS) 1 MG capsule Take 1 mg by mouth at bedtime Total 3mg 07/12/20 Active OLANZapine (ZYPREXA) 5 MG tablet Take 5 mg by mouth. 06/25/20 Active lamoTRIgine (LAMICTAL) 25 MG tablet Take 25 mg by mouth daily. 06/26/20 24 Active FLUoxetine (PROZAC) 40 MG capsule 06/25/20 Active pantoprazole (PROTONIX) 40 MG EC tablet Take 40 mg by mouth. 06/26/20 Active ondansetron (ZOFRAN ODT) 4 MG ODT tab TAKE 1 TAB 1HR PRIOR TO KETAMINE IF NAUSEA PRONE. IF NAUSEA DEVELOPS TAKE 2 TABS. MAY TAKE ADDITIONAL 1 TAB EVERY 2 HRS UNTIL NAUSEA RESOLVES. DO NOT EXCEED 4 TABS IN 24HRS 02/20/20 Active cyanocobalamin (VITAMIN B-12) 1000 MCG tabletIndicati ons:Vitamin B12 deficiency (non anemic) Take 1 tablet (1,000 mcg) by mouth daily. 90 tablet 4 06/29/20 Active FLUoxetine (PROZAC) 10 MG capsule Take 10 mg by mouth daily 07/12/20 024 Discontinued FLUoxetine (PROZAC) 20 MG capsule Take 20 mg by mouth daily 07/12/20 024 Discontinued fluvoxaMINE (LUVOX) 100 MG tablet Take 100 mg by mouth daily Total 150mg daily 02/11/20 23 024 Discontinued omeprazole (PRILOSEC) [address] capsule Take 20 mg by mouth daily 07/07/20 23 024 Discontinued prazosin (MINIPRESS) 2 MG capsule Take 2 mg by mouth at bedtime Total 3mg 07/29/19 24 024 Discontinued Active Problems Problem Noted Date Diagnosed Date PTSD (post-traumatic stress disorder) 08/02/2023 History of bariatric surgery 09/14/2012 Vitamin D deficiency 06/25/2010 Immunizations Name Administration Dates Next Due COVID-19 12+ (RotoPop) 06/29/2024 Flu, Unspecified 03/27/2015 [id number] Novel Flu 06/10/2009 Influenza (IIV3) PF 03/18/2016, 3,05/09/2012,2009,03/27/2009 Influenza Vaccine >6 months,quad, PF ,04/13/2019,04/21/2018,2016,03/24/2016,03/18/2015,06/04/2014 Influenza Vaccine, 6+MO IM (QUADRIVALENT W/PRESERVATIVES) 05/08/2021 Influenza, Split Virus, Triv alent, Pf (Fluzone\Fluarix) 06/29/2024 Mantoux Tuberculin Skin Test 06/04/2014 TDAP (Adacel,Boostrix) 07/26/2018,12/29/2007 Social History Tobacco Use [...] in an abandoned building, in an overnight correction, or couch-surfing.) Yes 08/02/2023 Are you worried [...] on file Legal Sex Female 3:31 PM MISSILE MECHANIC Gender Identity Not on file Sexual Orientation Not on file Last Filed Vital Signs Vital Sign Reading Time Taken Comments Blood Pressure 96/54 06/29/2024 9:17 AM MISSILE MECHANIC Pulse 77 06/29/2024 9:17 AM MISSILE MECHANIC Temperature 36.2 C (97.1 F) 06/29/2024 9:17 AM MISSILE MECHANIC Respiratory Rate 16 06/29/2024 9:17 AM MISSILE MECHANIC Oxygen Saturation 100% 06/29/2024 9:17 AM MISSILE MECHANIC Inhaled Oxygen Concentration - - Weight 50.8 kg (112 lb) 06/29/2024 9:17 AM MISSILE MECHANIC Height 156.8 cm (5' 1.75) 06/29/2024 9:17 AM CS T Body Mass Index 20.65 06/29/2024 9:17 AM MISSILE MECHANIC Plan of Treatment Not on file Procedures Procedure Name Priority Date/Time Associated Diagnosis Comments VITAMIN B12 Routine 06/29/2024 10:04 AM MISSILE MECHANIC Vitamin B12 deficiency (non anemic) MAGNESIUM Routine 06/29/2024 10:04 AM MISSILE MECHANIC PTSD (post-traumatic stress disorder) COMPREHENSIVE METABOLIC PANEL Routine 06/29/2024 10:04 AM MISSILE MECHANIC Elevated liver enzymes LIPID PANEL (EXTERNAL RESULT) Routine 10/17/2020 8:44 AM CDT ABSTRACT HPV (HIM EXTERNAL RESULT) Routine 12/13/2018 9:15 AM CDT from Last 3 Months or Most Recently Relevant to Health Maintenance Results * Magnesium (06/29/2024 10:04 AM MISSILE MECHANIC) Magnesium 2.2 1.7 - 2.3 mg/dL 06/29/2024 7:10 PM MISSILE MECHANIC [facility] Blood BLOOD SPECIMEN / Unknown Venipuncture / Unknown 06/29/2024 10:04 AM MISSILE MECHANIC 06/29/2024 10:05 AM MISSILE MECHANIC us Morena Paredes MD LAB - BLOOD ORDERABLES Fin al Result [facility] [place] [facility] [address] [facility], [address] [phone] * Comprehensive metabolic panel (BMP + Alb, Alk Phos, ALT, AST, Total. Bili, TP) (06/29/2024 10:04 AMCST) Sodium 140 135 - 145 mmol/L 06/29/2024 7:10 PM MISSILE MECHANIC [facility] Potassium 4.0 3.4 - 5.3 mmol/L 06/29/2024 7:10 PM MISSILE MECHANIC [facility] Carbon Dioxide (CO2) 25 22 - 29 mmol/L 06/29/2024 7:10 PM MISSILE MECHANIC [facility] Anion Gap 9 7 - 15 mmol/L 06/29/2024 7:10 PM MISSILE MECHANIC [facility] Urea Nitrogen 8.9 6.0 - 20.0 mg/dL 06/29/2024 7:10 PM MISSILE MECHANIC [facility] Creatinine 0.81 0.51 - 0.95 mg/dL 06/29/2024 7:10 PM MISSILE MECHANIC [facility] GFR Estimate >90 >60 mL/min/1.7 3m2 06/29/2024 7:10 PM MISSILE MECHANIC [facility] Comment:eGFR calculated usin 2020 CKD-EPI equation. Calcium 8.8 8.8 - 10.4 mg/dL 06/29/2024 7:10 PM MISSILE MECHANIC [facility] Comment:Reference intervals for this test were updated on 01/31/2024 to reflect our healthy population more accurately. There may be differences in the flagging of prior results with similar values performed with this method. Those prior results can be interpreted in the context of the updated reference intervals. Chloride 106 98 - 107 mmol/L 06/29/2024 7:10 PM MISSILE MECHANIC [facility] Glucose 86 70 - 99 mg/dL 06/29/2024 7:10 PM MISSILE MECHANIC [facility] Alkaline Phosphatase 55 40 - 150 U/L 06/29/2024 7:10 PM MISSILE MECHANIC [facility] AST 20 0 - 45 U/L 06/29/2024 7:10 PM MISSILE MECHANIC [facility] ALT 19 0 - 50 U/L 06/29/2024 7:10 PM MISSILE MECHANIC [facility] Protein Total 6.7 6.4 - 8.3 g/dL 06/29/2024 7:10 PM MISSILE MECHANIC [facility] Albumin 4.2 3.5 - 5.2 g/dL 06/29/2024 7:10 PM MISSILE MECHANIC [facility] Bilirubin Total 0.2 <=1.2 mg/dL 06/29/2024 7:10 PM MISSILE MECHANIC [facility] Blood BLOOD SPECIMEN / Unknown Venipuncture / Unknown 06/29/2024 10:04 AM MISSILE MECHANIC 06/29/2024 10:05 AM MISSILE MECHANIC us Morena Paredes MD LAB - BLOOD ORDERABLES Fin al Result Performing Organization Address City/[facility]/ZIP Co de Phone Number [facility] [place] [facility] [address] [facility], [address] * Vitamin B12 (06/29/2024 10:04 AM MISSILE MECHANIC) Vitamin B12 1,129 232 - 1,245 pg/mL 06/29/2024 7:10 PM MISSILE MECHANIC [facility] Blood BLOOD SPECIMEN / Unknown Venipuncture / Unknown 06/29/2024 10:04 AM MISSILE MECHANIC 06/29/2024 10:05 AM MISSILE MECHANIC us Morena Paredes MD LAB - BLOOD ORDERABLES Fin al Result [facility] [place] [facility] [address] [facility], [address] * Lipid Panel (External Result) (10/17/2020 8:44 AM CDT) Cholesterol (External) 181 100 - 199 mg/dL [facility] Triglycerides (External) 58 <150 mg/dL [facility] HDL Cholesterol (External) 56 >40 mg/dL [facility] LDL Cholesterol Calculated (External) 113 <=130 mg/dL [facility] Non HDL Cholesterol (External) 125 <145 mg/dL [facility] Blood 10/17/2020 8:44 AM CDT Narrative [facility] - 10/17/2020 8:44 AM CDT See Care Everywhere-[facility] us Provider Outside LAB - HIM EXTERNAL RESULT Final Result [facility] [address] [phone] * Abstract HPV (HIM External Result) (12/13/2018 9:15 AM CDT) HPV Abstract See Scanned Document [email or web address] 12/13/2018 9:15 AM CDT Narrative [facility] [email or web address] - 12/13/2018 9:15 AM CDT See Care Everywhere-[facility] [employer] [facility] us Provider Outside LAB - HIM EXTERNAL RESULT Final Result [facility] [email or web address] [address] [place] [address], [facility] from Last 3 Months or Most Recently Relevant to Health Maintenance Insurance [facility] CORE [facility] CORE Care Teams Dust Collector Attendant Relationship Specialty Start Date End Date Morena Paredes MD [address] [place] [address] PCP - General Internal Medicine - Pediatrics 12/14/22 Morena Paredes MD [address] [place] [address] Assigned PCP 08/11/23
--- OUTSIDE RECORDS SUMMARY | 2024-07-23 21:07 | XMS_ITS | Clinical Summary ---
Author Organization [place] Address [address] [place] [address] Care Team Providers Care Religious Leader Name Role Phone Morena Paredes MD Primary Care Provider [phone] Morena Paredes MD Unavailable Allergies No known active allergies Medications Cholecalcifero l (VITAMIN D-3) 125 MCG (1961 UT) TABS Take 1 capsule by mouth [...] by mouth at bedtime Total 3mg 07/12/20 23 Active OLANZapine (ZYPREXA) 5 MG tablet Take 5 mg by mouth. 06/25/20 24 Active lamoTRIgine (LAMICTAL) 25 MG tablet Take 25 mg by mouth daily. 06/26/20 24 Active FLUoxetine (PROZAC) 40 MG capsule 06/25/20 24 Active pantoprazole (PROTONIX) 40 MG EC tablet Take 40 mg by mouth. 06/26/20 24 Active ondansetron (ZOFRAN ODT) 4 MG ODT tab TAKE 1 TAB 1HR PRIOR TO KETAMINE IF NAUSEA PRONE. IF NAUSEA DEVELOPS TAKE 2 TABS. MAY TAKE ADDITIONAL 1 TAB EVERY 2 HRS UNTIL NAUSEA RESOLVES. DO NOT EXCEED 4 TABS IN 24HRS 02/20/20 24 Active cyanocobalamin (VITAMIN B-12) 1000 MCG tabletIndicati ons:Vitamin B12 deficiency (non anemic) Take 1 tablet (1,000 mcg) by mouth daily. 90 tablet 4 06/29/20 Active FLUoxetine (PROZAC) 10 MG capsule Take 10 mg by mouth daily 07/12/20 024 Discontinued FLUoxetine (PROZAC) 20 MG capsule Take 20 mg by mouth daily 07/12/20 Discontinued fluvoxaMINE (LUVOX) 100 MG tablet Take 100 mg by mouth daily Total 150mg daily 02/11/20 024 Discontinued omeprazole (PRILOSEC) [address] capsule Take 20 mg by mouth daily 07/07/20 024 Discontinued prazosin (MINIPRESS) 2 MG capsule Take 2 mg by mouth at bedtime Total 3mg 07/29/19 024 Discontinued Active Problems Problem Noted Date Diagnosed Date PTSD (post-traumatic stress disorder) 08/02/2023 History of bariatric surgery 09/14/2012 Vitamin D deficiency 06/25/2010 Encounters Date Type Department Care Team Description 06/29/2024 9:30 AM RADIOLOGY RESIDENT Office Visit [address] [place] [phone] Morena Paredes MD Suicide attempt by benzodiazepine overdose (H) (Primary Dx); PTSD (post-traumatic stress disorder); Elevated liver enzymes; Vitamin B12 deficiency (non anemic); Need for prophylactic vaccination and inoculation against influenza; High priority for 2019-nCoV vaccine 06/29/2024 Travel from Last 3 Months Immunizations Name Administration Dates Next Due COVID-19 12+ (Pfizer) 06/29/2024 Flu, Unspecified 03/27/2015 [id number] Novel Flu 06/10/2009 Influenza (IIV3) PF 03/18/2016, [...] in an abandoned building, in an overnight detention, or couch-surfing.) Yes 08/02/2023 Are you worried [...] on file Legal Sex Female 3:31 PM RADIOLOGY RESIDENT Gender Identity Not on file Sexual Orientation Not on file Last Filed Vital Signs Vital Sign Reading Time Taken Comments Blood Pressure 96/54 06/29/2024 9:17 AM RADIOLOGY RESIDENT Pulse 77 06/29/2024 9:17 AM RADIOLOGY RESIDENT Temperature 36.2 C (97.1 F) 06/29/2024 9:17 AM RADIOLOGY RESIDENT Respiratory Rate 16 06/29/2024 9:17 AM RADIOLOGY RESIDENT Oxygen Saturation 100% 06/29/2024 9:17 AM RADIOLOGY RESIDENT Inhaled Oxygen Concentration - - Weight 50.8 kg (112 lb) 06/29/2024 9:17 AM RADIOLOGY RESIDENT Height 156.8 cm (5' 1.75) 06/29/2024 9:17 AM CS T Body Mass Index 20.65 06/29/2024 9:17 AM RADIOLOGY RESIDENT Plan of Treatment Health Maintenance Due Date Last Done Comments ADVANCE CARE PLANNING 1980 ANNUAL REVIEW OF HM ORDERS 1980 MAMMO SCREENING 1980 YEARLY PREVENTIVE VISIT 1983 HPV TEST 12/14/2023 12/13/2018, 12/13/2018 PAP 12/14/2023 12/13/2018, 11/16, 12/13/2018, Additional history exists PHQ-2 (once per calendar year) 2024 08/02/2023, 08/02/2023 LIPID 10/17/2025 10/17/2020 GLUCOSE 06/29/2027 06/29/2024 DTAP/TDAP/TD IMMUNIZATION (3 - Td or Tdap) 07/26/2028 07/26/2018, 12/29/2007 RSV VACCINE (1 - 1-dose 75+ series) 2055 COVID-19 Vaccine Completed 06/29/2024, , 08/19/2020, Additional history exists INFLUENZA VACCINE Completed 06/29/2024, , 04/02/2020, Additional history exists HEPATITIS B IMMUNIZATION Discontinued HEPATITIS C SCREENING Discontinued HIV SCREENING Discontinued HPV IMMUNIZATION Aged Out No longer e ligible based on patient's age to complete this topic MENINGITIS IMMUNIZATION Aged Out No l onger eligible based on patient's age to complete this topic Pneumococcal Vaccine: Pediatrics (0 to 5 Years) and At-Risk Patients (6 to 49 Years) Aged Out No longer eligible based on patient's age to complete this topic RSV MONOCLONAL ANTIBODY Aged Out No l onger eligible based on patient's age to complete this topic Procedures Procedure Name Priority Date/Time Associated Diagnosis Comments VITAMIN B12 Routine 06/29/2024 10:04 AM RADIOLOGY RESIDENT Vitamin B12 deficiency (non anemic) MAGNESIUM Routine 06/29/2024 10:04 AM RADIOLOGY RESIDENT PTSD (post-traumatic stress disorder) COMPREHENSIVE METABOLIC PANEL Routine 06/29/2024 10:04 AM RADIOLOGY RESIDENT Elevated liver enzymes LIPID PANEL (EXTERNAL RESULT) Routine 10/17/2020 8:44 AM CDT ABSTRACT HPV (HIM EXTERNAL RESULT) Routine 12/13/2018 9:15 AM CDT from Last 3 Months or Most Recently Relevant to Health Maintenance Results * Magnesium (06/29/2024 10:04 AM RADIOLOGY RESIDENT) Magnesium 2.2 1.7 - 2.3 mg/dL 06/29/2024 7:10 PM RADIOLOGY RESIDENT [facility] Blood BLOOD SPECIMEN / Unknown Venipuncture / Unknown 06/29/2024 10:04 AM RADIOLOGY RESIDENT 06/29/2024 10:05 AM RADIOLOGY RESIDENT us Morena Paredes MD LAB - BLOOD ORDERABLES Fin al Result [facility] [place] [facility] [address] [facility], [address] [place] [address] * Comprehensive metabolic panel (BMP + Alb, Alk Phos, ALT, AST, Total. Bili, TP) (06/29/2024 10:04 AMCST) Sodium 140 135 - 145 mmol/L 06/29/2024 7:10 PM RADIOLOGY RESIDENT [facility] Potassium 4.0 3.4 - 5.3 mmol/L 06/29/2024 7:10 PM RADIOLOGY RESIDENT [facility] Carbon Dioxide (CO2) 25 22 - 29 mmol/L 06/29/2024 7:10 PM RADIOLOGY RESIDENT [facility] Anion Gap 9 7 - 15 mmol/L 06/29/2024 7:10 PM RADIOLOGY RESIDENT [facility] Urea Nitrogen 8.9 6.0 - 20.0 mg/dL 06/29/2024 7:10 PM RADIOLOGY RESIDENT [facility] Creatinine 0.81 0.51 - 0.95 mg/dL 06/29/2024 7:10 PM RADIOLOGY RESIDENT [facility] GFR Estimate >90 >60 mL/min/1.7 3m2 06/29/2024 7:10 PM RADIOLOGY RESIDENT [facility] Comment:eGFR calculated usin 2020 CKD-EPI equation. Calcium 8.8 8.8 - 10.4 mg/dL 06/29/2024 7:10 PM RADIOLOGY RESIDENT [facility] Comment:Reference intervals for this test were updated on 01/31/2024 to reflect our healthy population more accurately. There may be differences in the flagging of prior results with similar values performed with this method. Those prior results can be interpreted in the context of the updated reference intervals. Chloride 106 98 - 107 mmol/L 06/29/2024 7:10 PM RADIOLOGY RESIDENT [facility] Glucose 86 70 - 99 mg/dL 06/29/2024 7:10 PM RADIOLOGY RESIDENT [facility] Alkaline Phosphatase 55 40 - 150 U/L 06/29/2024 7:10 PM RADIOLOGY RESIDENT [facility] AST 20 0 - 45 U/L 06/29/2024 7:10 PM RADIOLOGY RESIDENT [facility] ALT 19 0 - 50 U/L 06/29/2024 7:10 PM RADIOLOGY RESIDENT [facility] Protein Total 6.7 6.4 - 8.3 g/dL 06/29/2024 7:10 PM RADIOLOGY RESIDENT [facility] Albumin 4.2 3.5 - 5.2 g/dL 06/29/2024 7:10 PM RADIOLOGY RESIDENT [facility] Bilirubin Total 0.2 <=1.2 mg/dL 06/29/2024 7:10 PM RADIOLOGY RESIDENT [facility] Blood BLOOD SPECIMEN / Unknown Venipuncture / Unknown 06/29/2024 10:04 AM RADIOLOGY RESIDENT 06/29/2024 10:05 AM RADIOLOGY RESIDENT us Morena Paredes MD LAB - BLOOD ORDERABLES Fin al Result LABORATORY [facility] Lab [address] [facility], [address] [phone] * Vitamin B12 (06/29/2024 10:04 AM RADIOLOGY RESIDENT) Vitamin B12 1,129 232 - 1,245 pg/mL 06/29/2024 7:10 PM RADIOLOGY RESIDENT [facility] Blood BLOOD SPECIMEN / Unknown Venipuncture / Unknown 06/29/2024 10:04 AM RADIOLOGY RESIDENT 06/29/2024 10:05 AM RADIOLOGY RESIDENT us Morena Paredes MD LAB - BLOOD ORDERABLES Fin al Result Performing Organization Address City/[facility] Co de Phone Number LABORATORY [facility] Lab [address] [facility], [address] [phone] * Lipid Panel (External Result) (10/17/2020 8:44 AM CDT) Cholesterol (External) 181 100 - 199 mg/dL [facility] Triglycerides (External) 58 <150 mg/dL [facility] HDL Cholesterol (External) 56 >40 mg/dL [facility] LDL Cholesterol Calculated (External) 113 <=130 mg/dL [facility] Non HDL Cholesterol (External) 125 <145 mg/dL [facility] Blood 10/17/2020 8:44 AM CDT Narrative [facility] - 10/17/2020 8:44 AM CDT See Care Everywhere-[facility] us Provider Outside LAB - HIM EXTERNAL RESULT Final Result [facility] [address] [phone] * Abstract HPV (HIM External Result) (12/13/2018 9:15 AM CDT) HPV Abstract See Scanned Document [email or web address] 12/13/2018 9:15 AM CDT Narrative [facility] [employer] [facility] - 12/13/2018 9:15 AM CDT See Care Everywhere-[employer] [facility] us Provider Outside LAB - HIM EXTERNAL RESULT Final Result [facility] [address] [facility] [address] [place] [address], [facility] from Last 3 Months or Most Recently Relevant to Health Maintenance Insurance [facility] Care Teams Religious Leader Relationship Specialty Start Date End Date Morena Paredes MD [address] [facility] [place] [address] PCP - General Internal Medicine - Pediatrics 12/14/22 Morena Paredes MD [address] [facility] [place] [address] Assigned PCP 08/11/23
--- OUTSIDE RECORDS SUMMARY | 2024-07-23 21:07 | XMS_ITS | Encounter Summary ---
Author Organization [place] Address [address] [place] [address] Care Team Providers Care Cellar Hand Name Role Phone Morena Paredes MD Primary Care Provider [phone] Morena Paredes MD Unavailable [phone] Encounter Details Date Type Department Care Team (Latest Contact Info) Description 06/29/2024 Travel Social History Tobacco Use Types Packs/Day Years Used Date Smoking Tobacco: Never Smokeless Tobacco: Never PHQ-2 Answer Date Recorded PHQ-2 Score 3 [...] on file Legal Sex Female 3:31 PM MANAGER CARDIAC Gender Identity Not on file Sexual Orientation Not on file documented as of this encounter Plan of Treatment Not on file documented as of this encounter Visit Diagnoses Not on filedocumented in this encounter Additional Health Concerns Assessment Noted Time PHQ-9 Depression Total Score: 11 024 9:42 AM MANAGER CARDIAC documented as of this encounter Care Teams Cellar Hand Relationship Specialty [place] [address] [place] [address] PCP - General Internal Medicine - Pediatrics 12/14/22 [place] [address] [place] [address] Assigned PCP 08/11/23 documented as of this encounter
--- OUTSIDE RECORDS SUMMARY | 2024-07-23 21:07 | XMS_ITS | Clinical Summary ---
Author Organization [facility] Address [place], [place] [address] Care Team Providers Care Rehab Aide Name Role Phone Pcp, No Primary Care Provider Unavailabl e Allergies No known active allergies Medications betamethasone dipropionate 0.05% (DIPROSONE 0.05% CREAM) 0.05 % creamIndications: Psoriasiform dermatitis Apply topically to affected area(s) 2 times daily. Use up to 2 weeks as needed for rash 45 g 1 1 Active Betamethasone Valerate 0.12 % foamIndications:S calp psoriasis Apply topically to affected area(s) 2 times daily. 100 g 3 1 Active LORazepam (ATIVAN) 1 mg tabletIndications :Left-sided ischial pain Take 1-2 Tablets (1-2 mg) by mouth one time if needed for Other (Specify) (procedure/den tist). Caution sedation 2 tablet. 1 1 Active omeprazole (PRILOSEC) 20 mg Delayed-Release capsuleIndication s:Chronic GERD Take 1 Capsule (20 mg) by mouth once daily before a meal. 90 Capsule 3 1 Active sertraline (ZOLOFT) 100 mg tabletIndications :Mood insomnia (HC),Irritability Take 1 Tablet (100 mg) by mouth at bedtime. 90 Tablet 3 1 Active traMADoL (ULTRAM) 50 mg tabletIndications :Chronic bilateral low back pain with bilateral sciatica Take 1 Tablet (50 mg) by mouth every 6 hours if needed for Pain. 60 tablet. 5 1 Active cholecalciferol (Vitamin D-3) 2,000 unit capsuleIndication s:Vitamin D deficiency Take 1 Capsule (2,000 units) by mouth once daily. 90 Capsule 3 1 Active cyanocobalamin, vitamin B-12, 2,500 mcg lozgIndications:B [address] 2,500 mcg under the tongue once daily. 100 Lozenge 1 Active Active Problems Problem Noted Date Diagnosed Date B12 deficiency 10/28/2020 History of bariatric surgery 09/14/2012 IUD (intrauterine device) in place 09/14/2012 Overview (09/14/2012): Mirena placed 09/14/12 Vitamin D deficiency 06/25/2010 Other acne 01/16/2007 Attention deficit disorder without mention of hy peractivity 03/03/2006 Polycystic ovaries 03/03/2006 Issue of repeat prescriptions Folate deficiency Chronic pain disorder Overview (10/10/2019): As needed tramadol, #60 usually lasts > 30 days. Resolved Problems Problem Noted Date Diagnosed Date Resolved Date Urinary tract infection, site not specified 03/03/2006 02/01/2012 Immunizations Name Administration Dates Next Due COVID-19 vaccine (72798.com 30mcg/0.3mL) PF, MDV 08/19/2020,07/29/2020 Influenza A (H1N1), Inactiva amanda (Age >=3 Years) 06/10/2009 Influenza, IIV3 (Age >=3 years) 03/18/20 16,04/09/2013,05/09/2012,2009,03/27/2009 Influenza, IIV4 04/13/2019, 8,03/31/2017,2014,06/04/2014 Tdap 07/26/2018,12/29/2007 Tuberculin (PPD) 06/04/2014 Family History Medical History Relation Name Comments Psychiatric illness Brother 2 OCD Psychiatric illness Brother 3 OCD, Asp erger's Cancer-colon Maternal Grandfather age 35 Psoriasis Mother Cancer-colon Paternal Grandmother age 67 Psoriasis Sister 1 Other Sister 2 PCOS, seizures Relation Name Status Comments Brother 1 Alive x2 Brother 2 Brother 3 Daughter Alive x1 Father Alive Maternal Grandfather Maternal Grandmother Mother Alive Paternal Grandfather Alive Paternal Grandmother Sister 1 Alive x1 Sister 2 Social History Tobacco Use Types Packs/Day Years Used Date Smoking Tobacco: Former Cigarettes 0.5 15 0 07/18/1993 - 07/18/2008 Smokeless Tobacco: Never Tobacco Cessation:Counseling Given: Yes Comments:since age 13 Alcohol Use Standard Drinks/Week Comments No 0 (1 standard drink = 0.6 oz pur e alcohol) PHQ-2 Answer Date Recorded PHQ-2 TOTAL SCORE 0 05/01/2020 Social Connections Answer Date Recorded Frequency of Communication with Friends and Fami ly Not on file 07/18/2021 Financial Resource Strain Answer Date R ecorded Difficulty of Paying Living Expenses Not on file 07/18/2021 Difficulty of Paying Living Expenses Not on file 07/18/2021 Comments No Sex and Gender Information Value Date Recorded Sex Assigned at Not on file Legal Sex Female 5:43 AM TERRAZZO MECHANIC HELPER Gender Identity Not on file Sexual Orientation Not on file 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 Last Filed Vital Signs Vital Sign Reading Time Taken Comments Blood Pressure 138/70 10/17/2020 7:51 AM CDT Pulse 64 10/17/2020 7:51 AM CDT Temperature 36.8 C (98.2 F) 04/05/2019 4:36 PM CDT Respiratory Rate 16 10/17/2020 7:51 AM CDT Oxygen Saturation 100% 04/05/2019 4:36 PM CDT Inhaled Oxygen Concentration - - Weight 66.5 kg (146 lb 9.6 oz) 10/17/2020 7:51 A M CDT Height 157.5 cm (5' 2) 10/17/2020 7:51 AM CDT Body Mass Index 26.81 10/17/2020 7:51 AM CDT Plan of Treatment Health Maintenance Due Date Last Done Comments Depression screening for age 12+ 05/03/2021 05/03/2020, 05/01/2020, 04/16/2019, Additional history exists BMI (ht and wt on same day) for age 18+ 10/17/2021 10/17/2020, 05/01/2020, 04/16/2019, Additional history exists Pap test for age 21-65 12/14/2023 9, 12/13/2018, 07/26/2018, Additional history exists COVID-19 vaccine series ( season) 2024 08/19/2020, 07/29/2020 Influenza for age 9-49 03/18/2024 9, 04/21/2018, 03/31/2017, Additional history exists Tetanus booster 07/26/2028 07/26/2018, 12/29/2007 HIV for age 15-65 Completed 11/12/2008, 12/29/2007 Hepatitis C screening for age 18-79 Completed 01/16/2009, 12/29/2007 Tdap Completed 07/26/2018, 12/29/2007 Pneumococcal series for age 6-49 Aged Out No longer eligible based on patient's age to complete this topic Procedures Procedure Name Priority Date/Time Associated Diagnosis Comments SUGAR CONTROLLER THIN PREP PAP SCREEN IMAGED Routine 12/13/2018 9:15 AM CDT Cervical cancer screening ANTI HCV Routine 01/16/2009 5:17 PM CDT Supervision of Other Normal ANTI HIV 1/2 Routine 11/12/2008 3:45 PM CDT Supervision of Other Normal from Last 3 Months or Most Recently Relevant to Health Maintenance Results * SUGAR CONTROLLER THIN PREP PAP SCREEN IMAGED (12/13/2018 9:15 AM CDT) Case Report Gynecologic Cytology Report Case: [id number] Authorizing Provider: Sav Boyle DO Collected: 12/13/2018 0915 Ordering Location: [facility] Received: 12/13/2018 1100 Clinic First Screen: Morris Pineda Specimen: SUGAR CONTROLLER ThinPrep Vial Screening, Cervical 12/21/2018 9:44 AM CDT [facility] INTERPRETATION/ RESULT NEGATIVE FOR INTRAEPITHELIAL LESION OR MALIGNANCY (NIL) (none) 12/21/2018 9:44 AM CDT [facility] [address] [facility] IMEN ADEQUACY Satisfactory for evaluation Endocervical component present 12/21/2018 9:44 AM CDT [facility] HPV REQUEST HPV and PAP 12/21/2018 9:44 AM CDT [facility] Date of LMP 11/11/2018 12/21/2018 9:44 AM CDT [facility] Last Pap Date 07/26/18 12/21/2018 9:44 AM CDT [facility] Last Pap Result UNS 9 9:44 AM CDT [facility] Abnormal Pap or Mellen Bx in last 5 years No 12/21/2018 9:44 AM CDT [facility] Menstrual Status Regular Periods 12/21/2018 9:44 AM CDT [facility] Mellen Bx Done Today No 12/21/2018 9:44 AM CDT [facility] Additional Information None given 12/21/2018 9:44 AM CDT [facility] Automated Review Successful 12/21/2018 9:44 AM CDT [facility] Comment:Specimen processed s uccessfully by automated return clerk device, ThinPrep Imaging System, [employer] ANCILLARY TESTING SUGAR CONTROLLER HPV Ordered, Please see separate report 12/21/2018 9:44 AM CDT [facility] [address] [facility] Note The pap test is a screening technique, not a diagnostic procedure. It is used primarily to screen for squamous cancers and precursor lesions. Published studies have shown that it is subject to both false negative and false positive results. The pap test should not be used as the sole means to diagnose or exclude pre-malignant and malignant lesions. Cytology is screened and interpreted at [facility] - [address], [place] [address] and [facility] - [address]; [place] [address] and [facility] - [address]; [place] [address] and [facility] [address]; [place] [address] 12/21/2018 9:44 AM CDT [facility] Other (Cervical) Non-Blood / Unknown 12/13/2018 9:15 AM CDT 12/13/2018 11:00 AM CDT Sav Boyle DO PATHOLOGY/CYTOLOGY Final Result [facility] [address] [place] [address], [place] * HEPATITIS C [01827.2] (01/16/2009 5:17 PM CDT) ANTI HCV Non-reacti ve [facility] Blood specimen (specimen) BLOOD SPECIMEN / Unknown 01/16/2009 5:17 PM CDT 01/16/2009 5:13 PM CDT Sav Boyle DO SEND OUTS Final Res ult [facility]ORY [place] ZIP [address] [address] * ANTI HIV 1/2 (11/12/2008 3:45 PM CDT) ANTI HIV 1/2 Non-reacti ve [facility] Blood specimen (specimen) BLOOD SPECIMEN / Unknown 11/12/2008 3:45 PM CDT 11/12/2008 3:33 PM CDT us Sav Buchanan Rafaelaidania DO SEND OUTS Final Res ult [facility]ORY INTERNAL ZIP [address] [address] from Last 3 Months or Most Recently Relevant to Health Maintenance [facility] [place] [address] TRAVELERS x106 (Home) ATTN: ELTON RABAGO [address] [place] [address] * Guarantor: [employer] MARINE[employer] [facility] [employer] Account Type Relation to Patient Date of Phone Billing Address [facility] [address] [employer] Other 07/18/[address] [place] [address] Care Teams Rehab Aide Relationship Specialty Start Date End Date Pcp, No . PCP - General 11/29/23
--- OUTSIDE RECORDS SUMMARY | 2024-07-23 21:07 | XMS_ITS | Encounter Summary ---
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 Name Role Phone Morena Paredes MD Primary Care Provider [phone] Morena Paredes MD Unavailable [phone] Reason for Visit * Reason Onset Date Comments Hospital F/U Imm/Inj 06/29/2024 Flu Shot Imm/Inj 06/29/2024 COVID-19 VACCINE Encounter Details Date Type Department Care Team (Latest Contact Info) Description 06/29/2024 9:30 AM TIE HACKER Office Visit [address] [place] [address] [place] [address] [place] [address] Suicide attempt by benzodiazepine overdose (H) (Primary Dx); PTSD (post-traumatic stress disorder); Elevated liver enzymes; Vitamin B12 deficiency (non anemic); Need for prophylactic vaccination and inoculation against influenza; High priority for 2019-nCoV vaccine Social History Tobacco Use Types Packs/Day Years [...] Answer Date Recorded Do you have housing? (Galdino fernando is defined as stable permanent housing and does not include staying ouside in a car, in a tent, in an abandoned building, in an overnight alf, or couch-surfing.) Yes 08/02/2023 Are you worried [...] on file Legal Sex Female 3:31 PM TIE HACKER Gender Identity Not on file Sexual Orientation Not on file documented as of this encounter Last Filed Vital Signs Vital Sign Reading Time Taken Comments Blood Pressure 96/54 06/29/2024 9:17 AM TIE HACKER Pulse 77 06/29/2024 9:17 AM TIE HACKER Temperature 36.2 C (97.1 F) 06/29/2024 9:17 AM TIE HACKER Respiratory Rate 16 06/29/2024 9:17 AM TIE HACKER Oxygen Saturation 100% 06/29/2024 9:17 AM TIE HACKER Inhaled Oxygen Concentration - - Weight 50.8 kg (112 lb) 06/29/2024 9:17 AM TIE HACKER Height 156.8 cm (5' 1.75) 06/29/2024 9:17 AM CS T Body Mass Index 20.65 06/29/2024 9:17 AM TIE HACKER documented in this encounter Patient Instructions * Patient Instructions* Morena Paredes MD - 06/29/2024 9:30 AM TIE HACKER Crisis resources 988: nationwide suicide and mental health crisis counseling 211: [employer] free and confidential health and human services information for people in [place]. Can help with mental health, eviction resources, alcohol and drug resources, food and housing instability. Text HOME to 380283 from anywhere in the [facility], anytime. Crisis Text Line is here for any crisis. A live, trained Crisis Counselor receives the text and responds, all from our secure online platform. The volunteer Crisis Counselor will help you move from a hot moment to a cool moment. [facility] ([facility]): a calming, living room-style environment. The shared, open layoutis equipped with comfortable recliners, self-serve refreshment stations, and sensory rooms to put patients at ease while our care teams address their mental health needs. MEAGHAN: 07/02 Suicide Hotline - Non-emergent Mental Health Hotline - www.meaghan.org HACKER documented in this encounter Progress Notes * Morena Paredes MD - 06/29/2024 9:30 AM CST Assessment & Plan Suicide attempt by benzodiazepine overdose (H) PTSD (post-traumatic stress disorder) Patient hospitalized at [facility] for suicide attempt. Documentation unavailable at thistime. Per patient had panic attack then went into bathtub and took approximately a bottle of benzo and a bottle of tramadol. Reports ketamine wrappers were found by her but only had 2 sublingual tablets left. Is on several medications including mood stabilizer, antipsychotic, selective serotonin reu ptake inhibitor. Has outpatient psychiatrist who will continue to prescribe medications - I could provider bridge if needed but patient reports having enough medication as of now. Discussed options for partial hospitalizations or IOP programs - patient completed these as well as SBT, DBT, trauma based therapy programs in the last year and feels safe as of now. is in charge of medications and bottles are locked. Per patient a majority of the current symptoms are trauma response related to hospitalizations (including ICU stay) of daughter Ehsan who experienced unintentional [place] toxicity and was hospitalized at [facility]. - Magnesium; Future - Magnesium Elevated liver enzymes Suspect toxic injury or shock liver. Repeat labs. - Comprehensive metabolic panel (BMP + Alb, Alk Phos, ALT, AST, Total. Bili, TP); Future - Comprehensive metabolic panel (BMP + Alb, Alk Phos, ALT, AST, Total. Bili, TP) Vitamin B12 deficiency (non anemic) On B12 supplement. - Vitamin B12; Future - cyanocobalamin (VITAMIN B-12) 1000 MCG tablet; Take 1 tablet (1,000 mcg) by mouth daily. - Vitamin B12 Need for prophylactic vaccination and inoculation against influenza Flu shot. High priority for 2019-nCoV vaccine COVID19 shot. MED REC REQUIRED Post Medication Reconciliation Status: Discharge medications reconciled, continue medications without change Mateo Soares is a 44 year old, presenting for the following health issues: Hospital F/U 06/29/2024 9:12 AM Additional Questions Roomed by Maria Elena 06/29/2024 9:12 AM Patient Reported Additional Medications Patient reports taking the following new medications Many HPI Hospital Follow-up Visit: Hospital/Fci/IP Rehab Facility: [facility] Date of Admission: 06/15-06/18 [place] 06/18-06/25 [place] Date of Discharge: 06/25 Reason(s) for Admission: Suicide attempt Was the patient in the ICU or did the patient experience delirium during hospitalization? No Do you have any other stressors you would like to discuss with your provider? OTHER: PTSD depression Problems taking medications regularly: None Medication changes since discharge: Many Problems adhering to non-medication therapy: None Summary of hospitalization: Discharge summary unavailable Diagnostic Tests/Treatments reviewed. Follow up needed: patient will call psychiatrist Other Healthcare Providers Involved in Patient???s Care: Specialist appointment - psychiatrist Update since discharge: stable. 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 Body mass index is 20.65 kg/m??. Physical Exam GEN: Alert and appropriately interactive for age EYES: Eyes grossly normal to inspection, conjunctivae and sclerae normal RESP: Breathing comfortably on room air CV: Warm and well perfused peripheral extremities MS: no gross musculoskeletal defects noted, no edema NEURO: Alert and oriented. Speech fluent. PSYCH: Affect normal/bright. Appearance well groomed. Signed Electronically by: Morena Paredes MD HACKER documented in this encounter Plan of Treatment Not on file documented as of this encounter Procedures Procedure Name Priority Date/Time Associated Diagnosis Comments MAGNESIUM Routine 06/29/2024 10:04 AM TIE HACKER PTSD (post-traumatic stress disorder) COMPREHENSIVE METABOLIC PANEL Routine 06/29/2024 10:04 AM TIE HACKER Elevated liver enzymes VITAMIN B12 Routine 06/29/2024 10:04 AM TIE HACKER Vitamin B12 deficiency (non anemic) documented in this encounter Results * Vitamin B12 (06/29/2024 10:04 AM TIE HACKER) Vitamin B12 1,129 232 - 1,245 pg/mL 06/29/2024 7:10 PM TIE HACKER [facility] Blood BLOOD SPECIMEN / Unknown Venipuncture / Unknown 06/29/2024 10:04 AM TIE HACKER 06/29/2024 10:05 AM TIE HACKER us Morena Paredes MD LAB - BLOOD ORDERABLES Fin al Result [facility] [place] [facility] [address], Room [address] * Magnesium (06/29/2024 10:04 AM TIE HACKER) Magnesium 2.2 1.7 - 2.3 mg/dL 06/29/2024 7:10 PM TIE HACKER [facility] Blood BLOOD SPECIMEN / Unknown Venipuncture / Unknown 06/29/2024 10:04 AM TIE HACKER 06/29/2024 10:05 AM TIE HACKER Morena Paredes MD LAB - BLOOD ORDERABLES Fin al Result [facility] [place] [facility] [address] [facility], [address] * Comprehensive metabolic panel (BMP + Alb, Alk Phos, ALT, AST, Total. Bili, TP) (06/29/2024 10:04 AMCST) Pathologist [facility] Sodium 140 135 - 145 mmol/L 06/29/2024 7:10 PM TIE HACKER [facility] Potassium 4.0 3.4 - 5.3 mmol/L 06/29/2024 7:10 PM TIE HACKER [facility] Carbon Dioxide (CO2) 25 22 - 29 mmol/L 06/29/2024 7:10 PM TIE HACKER [facility] Anion Gap 9 7 - 15 mmol/L 06/29/2024 7:10 PM TIE HACKER [facility] Urea Nitrogen 8.9 6.0 - 20.0 mg/dL 06/29/2024 7:10 PM TIE HACKER [facility] Creatinine 0.81 0.51 - 0.95 mg/dL 06/29/2024 7:10 PM TIE HACKER [facility] GFR Estimate >90 >60 mL/min/1.7 3m2 06/29/2024 7:10 PM TIE HACKER [facility] Comment:eGFR calculated usin 2020 CKD-EPI equation. Calcium 8.8 8.8 - 10.4 mg/dL 06/29/2024 7:10 PM TIE HACKER [facility] Comment:Reference intervals for this test were updated on 01/31/2024 to reflect our healthy population more accurately. There may be differences in the flagging of prior results with similar values performed with this method. Those prior results can be interpreted in the context of the updated reference intervals. Chloride 106 98 - 107 mmol/L 06/29/2024 7:10 PM TIE HACKER [facility] Glucose 86 70 - 99 mg/dL 06/29/2024 7:10 PM TIE HACKER [facility] Alkaline Phosphatase 55 40 - 150 U/L 06/29/2024 7:10 PM TIE HACKER [facility] AST 20 0 - 45 U/L 06/29/2024 7:10 PM TIE HACKER [facility] ALT 19 0 - 50 U/L 06/29/2024 7:10 PM TIE HACKER [facility] Protein Total 6.7 6.4 - 8.3 g/dL 06/29/2024 7:10 PM TIE HACKER [facility] Albumin 4.2 3.5 - 5.2 g/dL 06/29/2024 7:10 PM TIE HACKER [facility] Bilirubin Total 0.2 <=1.2 mg/dL 06/29/2024 7:10 PM TIE HACKER [facility] Blood BLOOD SPECIMEN / Unknown Venipuncture / Unknown 06/29/2024 10:04 AM TIE HACKER 06/29/2024 10:05 AM TIE HACKER us Morena Paredes MD LAB - BLOOD ORDERABLES Fin al Result [facility] [place] [facility] [address] [facility], [address] [id number] documented in this encounter Visit Diagnoses Diagnosis Suicide attempt by benzodiazepine overdose (H)- Primary PTSD (post-traumatic stress disorder) Posttraumatic stress disorder Elevated liver enzymes Nonspecific elevation of levels of transaminase or lactic acid dehydrogenase (LDH) Vitamin B12 deficiency (non anemic) Other B-complex deficiencies Need for prophylactic vaccination and inoculation against influenza High priority for 2019-nCoV vaccine documented in this encounter Additional Health Concerns Assessment Noted Time PHQ-9 Depression Total Score: 11 024 9:42 AM TIE HACKER documented as of this encounter Care Teams 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
--- OUTSIDE RECORDS SUMMARY | 2024-07-23 21:07 | XMS_ITS | Continuity of Care Document ---
Author Name NwHIN User [facility] Address Unknown Organization Unknown Address Unknown Encounters FILTER APPLIED:Only known Encounters with Admission Date within the last 5 years Encounter Location Admission Discharge Billing Code Gun Repair Clerk Shimon Alba [facility]
== END 2024-07-23 21:07 | disposition left against medical advice (07) ==
LOC: ED 21:06
DX: Z53.21 Procedure and treatment not carried out due to patient leaving prior to being seen by health care provider (principal)